=== PATIENT | female | born 1995 | race Caucasian/White ===

== ENCOUNTER → 2022-08-20 | Outpatient (CLI) | payer BC, SELFPAY ==
[2022-08-26 16:05] LABS: HPV Reflexed? NOT INDICATED
== END | disposition home or self-care (01) ==
LOC: LAB 16:52
PROVIDERS: Registered Nurse; Visit Provider Advanced Practice Midwife
DX: Z12.4 Encounter for screening for malignant neoplasm of cervix (principal)
CPT/HCPCS: 88175; G0145

== ENCOUNTER → 2022-08-28 | Outpatient (CLI) | payer BC, SELFPAY ==
[2022-08-28 12:43] LABS: Cholesterol 175 mg/dL (200); High Density Lipoprotein 41 mg/dL; Triglycerides 96 mg/dL; Very Low Density Lipoprotein 19 mg/dL (5-40)
[2022-08-28 12:46] LABS: Progesterone Level 7.71 ng/mL (See Comment)
[2022-08-28 12:47] LABS: Hemoglobin A1c 5.4 % (3.8-5.6)
[2022-09-02 00:06] LABS: Testosterone Free 2.4 pg/mL (0.0-4.2)
== END | disposition home or self-care (01) ==
LOC: MTLAB 10:37
PROVIDERS: PCP Family Medicine; Referring Provider Registered Nurse; Visit Provider Registered Nurse
DX: N92.6 Irregular menstruation, unspecified (principal)
CPT/HCPCS: 36415; 80061; 82627; 83036; 84144; 84402; 82626

== ENCOUNTER → 2022-11-03 | Outpatient (CLI) | payer BC, SELFPAY ==
[2022-11-05 22:06] LABS: Chlamydia By Nucleic Acid AMP Negative (Negative); Gonococcus By Nucleic Acid AMP Negative (Negative)
== END | disposition home or self-care (01) ==
PROVIDERS: PCP Family Medicine; Referring Provider Advanced Practice Midwife; Visit Provider Advanced Practice Midwife
DX: O09.90 Supervision of high risk pregnancy, unspecified, unspecified trimester (principal); Z3A.00 Weeks of gestation of pregnancy not specified
CPT/HCPCS: 87086; 87491; 87591

== ENCOUNTER → 2022-11-20 | Outpatient (CLI) | payer BC, SELFPAY ==
[2022-11-20 10:03] LABS: Absolute Lymphocyte Count 1.84 X10^3/uL (0.83-4.51); Absolute Neutrophil Count 6.8 X10^3/uL (2.0-7.7); Basophil# 0.04 X10^3/uL; Basophil% 0.4 % (0-1); Eosinophil# 0.19 X10^3/uL; Hematocrit 36.5 % (37-47); Hemoglobin 12.8 g/dL (12.0-15.0); Lymphocyte # 1.84 X10^3/ul (0.83-4.51); Lymphocyte % 18.9 % (19-41); Mean Corp Hgb Conc 35.1 g/dL (32-36); Mean Corpuscular Hgb 30.9 pg (27.0-32.0); Mean Corpuscular Volume 88.2 fL (81-99); Mean Platelet Vol. 9.3 fl (6.2-12.0); Monocyte# 0.77 X10^3/uL; Monocyte% 7.9 % (0-10); NRBC Flagged by Analyzer 0 % (0-5); Neutrophil # 6.84 X10^3/uL (2.7-7.7); Neutrophil % 70.4 % (47-70); Platelet Count 329 K/mm3 (150-450); RBC Distribution Width CV 12.2 % (11.6-14.6); RBC Distribution Width SD 39.2 fl (35.1-43.9); Red Blood Count 4.14 M/mm3 (4.2-5.4); White Blood Count 9.7 K/mm3 (4.4-11.0)
[2022-11-20 10:46] LABS: HIV - WCH Non-Reactive (Nonreactive); Hepatitis B Surface Antigen Non-Reactive (Nonreactive); Hepatitis C Antibody Non-Reactive (Nonreactive); Rubella IgG Reactive (Nonreactive); Syphilis Antibodies Non-reactive
== END | disposition home or self-care (01) ==
LOC: LAB 09:07
PROVIDERS: PCP Family Medicine; Referring Provider Advanced Practice Midwife; Visit Provider Advanced Practice Midwife
DX: Z34.90 Encounter for supervision of normal pregnancy, unspecified, unspecified trimester (principal)
CPT/HCPCS: 36415; 85025; 86703; 86762; 86780; 86803; 86850; 86900; 86901; 87340

== ENCOUNTER → 2023-03-24 | Outpatient (CLI) | payer BC, SELFPAY ==
[2023-03-24 08:24] LABS: Absolute Lymphocyte Count 1.31 X10^3/uL (0.83-4.51); Absolute Neutrophil Count 6.7 X10^3/uL (2.0-7.7); Basophil# 0.04 X10^3/uL; Basophil% 0.5 % (0-1); Eosinophil# 0.15 X10^3/uL; Eosinophils% 1.7 % (0-5); Hematocrit 32.7 % (37-47); Hemoglobin 11.1 g/dL (12.0-15.0); Lymphocyte # 1.31 X10^3/ul (0.83-4.51); Lymphocyte % 14.9 % (19-41); Mean Corp Hgb Conc 33.9 g/dL (32-36); Mean Corpuscular Hgb 30.5 pg (27.0-32.0); Mean Corpuscular Volume 89.8 fL (81-99); Mean Platelet Vol. 9.3 fl (6.2-12.0); Monocyte# 0.52 X10^3/uL; Monocyte% 5.9 % (0-10); NRBC Flagged by Analyzer 0 % (0-5); Neutrophil # 6.69 X10^3/uL (2.7-7.7); Neutrophil % 75.9 % (47-70); Platelet Count 256 K/mm3 (150-450); RBC Distribution Width CV 12.7 % (11.6-14.6); RBC Distribution Width SD 41.6 fl (35.1-43.9); Red Blood Count 3.64 M/mm3 (4.2-5.4); White Blood Count 8.8 K/mm3 (4.4-11.0)
--- OUTSIDE RECORDS SUMMARY | 2023-03-24 08:26 | XMS RPT_ITS | CCD ---
Author Name Unknown Address [address] [place] [address] Organization [facility] Care Team Providers Care Talent Associate Name Role Phone Susanne Brennan Unavailable Unavailable Sustersic, Brennan V Unavailable Unavailable Sustersic, Brennan Unavailable Unavailable Osmin Montoya Unavailable Unavailable Sustersic, Brennan V Unavailable Unavailable Sustersic, Brennan V Unavailable [phone] Unavailable Unavailable Unavailable Unavailable Unavailable Unavailable Raphaelersmaciel VDO Jason Primary Care Provider Stephan MOTOR BLOCK MECHANIC-Jessy HORTON Unavailable JESSY CHAKRABORTY Attending Unavailable SUSANNE Arnold BRENNAN Primary Care Unavailable EVELYN VELAZQUEZ Referring Unavailab EVELYN Key Primary Care Unavailab JAY [place] Attending Unavailable Allergies Allergy Classification Reported Allergen(s) Allergy Type Date of Onset Reaction(s) Facility (20 sources) Sulfonamides (Antibiotic); Translations: [Sulfa Drugs] drug allergy [facility] Work Phone: (2 sources) Sulfonamides (Antibiotic); Translations: [SULFA (SULFONAMIDE ANTIBIOTICS)] Drug Allergy 11-06-2022 [facility] Work Phone: Medications Current Medications Medication Drug Class(es) Dates Sig (Normalized) Sig (Original) [id number] 200 actuat albuterol 0.09 mg/actuat metered dose inhaler (20 sources) beta2-Adrenergic Agonist Start: 02-14-2019 albuterol (ProAir HFA) 90 mcg/actuation inhaler Inhale. 0 02/14/2019 Active Completed/Discontinued Medications Medication Drug Class(es) Dates Sig (Normalized) Sig (Original) adapalene 0.001 mg/mg / benzoyl peroxide 0.025 mg/mg topical gel (20 sources) Retinoid Start: 02-14-2019 End: 12-28-2022 adapalene-benzoyl peroxide 0.1-2.5 % gel APPLY DIRECTED AT BEDTIME 0 02/14/2019 12/28/2022 Discontinued (Med List Cleanup) Problems Active Problems Problem Classification Problem Date Documented Date Episodic/Chronic Acute and chronic tonsillitis (10 sources) Tonsillitis; Translations: [Acute tonsillitis] Episodic Allergic reactions (20 sources) Atopic dermatitis; Translations: [Other atopic dermatitis and related conditions] Onset: 11-06-2022 11-06-2022 Chronic Anxiety disorders (20 sources) Generalized anxiety disorder; Translations: [Generalized anxiety disorder] Onset: 11-06-2022 12-28-2022 Chronic Asthma (20 sources) Uncomplicated mild persistent asthma; Translations: [Asthma, unspecified type, unspecified] Onset: 11-06-2022 11-06-2022 Chronic Attention-deficit, conduct, and disruptive behavior disorders (20 sources) Adult attention deficit hyperactivity disorder ; Translations: [Attention deficit disorder with hyperactivity] Onset: 11-06-2022 12-28-2022 Chronic Contraceptive and procreative management (20 sources) Oral contraception status; Translations: [Surveillance of contraceptive pill] Episodic Malaise and fatigue (20 sources) Fatigue; Translations: [Other malaise and fatigue] Onset: 11-06-2022 11-06-2022 Chronic Nutritional deficiencies (20 sources) Vitamin D deficiency; Translations: [Unspecified vitamin D deficiency] Onset: 11-06-2022 11-06-2022 Chronic Other aftercare (20 sources) Patient encounter status; Translations: [Encounter for therapeutic drug monitoring] Episodic Other connective tissue disease (10 sources) Muscle pain; Translations: [Myalgia and myositis, unspecified] Episodic Other lower respiratory disease (7 sources) Cough; Translations: [Cough] Episodic Other skin disorders (20 sources) Cystic acne; Translations: [Other acne] Onset: 11-06-2022 11-06-2022 Episodic Past or Other Problems Problem Classification Problem Date Documented Date Episodic/Chronic Influenza (20 sources) Influenza due to Influenza A virus; Translations: [Influenza with other respiratory manifestations] Resolved: 04-30-2021 Episodic Mood disorders (1 source) Mood disorders Onset: 04-30-2021 04-04-2022 Other connective tissue disease (20 sources) History of clinical finding in subject; Translations: [Personal history of other musculoskeletal disorders] Resolved: 04-30-2021 Episodic Other lower respiratory disease (20 sources) History of tonsillitis; Translations: [Personal history of other diseases of respiratory system] Resolved: 04-30-2021 Episodic Other upper respiratory infections (20 sources) Acute pansinusitis; Translations: [Other acute sinusitis] Resolved: 04-30-2021 Episodic Sprains and strains (20 sources) Strain of neck muscle; Translations: [Sprain of neck] Resolved: 04-30-2021 Episodic Unclassified (20 sources) History of clinical finding in subject; Translations: [History of cough] Resolved: 04-30-2021 NEGATED: Highlighted row has not occurred!Residual codes; unclassified (3 sources) Disease Episodic Results Test Name Value Interpretation Reference Range Facil ity Vital Signs Date Time Vital Sign Value Performing Clinician Faci lity 04-30-2021 10:04-0500 4 1 Brennan Skinner Work Phone: [facility] Work Phone: Encounters Encounter Date Encounter Type Care Provider Facility Start: 01-22-2023 End: 01-22-2023 ambulatory EVELYN VELAZQUEZ [facility] Start: 12-28-2022 End: 12-28-2022 Office outpatient visit 15 minutes Jessy Chakraborty MOTOR BLOCK MECHANIC-PUBLIC HEALTH DENTIST Work Phone: [facility] Procedures Date Procedure Procedure Detail Performing Clinician Start: 04-08-2020 CBC W Auto Different ial panel - Blood Brennan Skinner Start: 04-08-2020 Comprehensive metabo lic 2000 panel Brennan Skinner Plan of Treatment Date Care Activity Detail Author Start: 12-23-2045 Zoster Vaccines (1 of 2) Zoste r Vaccines (1 of 2) [facility] Start: 08-18-2032 DTaP/Tdap/Td Vaccine s (3 - Td or Tdap) DTaP/Tdap/Td Vaccines (3 - Td or Tdap) [facility] Start: 12-28-2022 VIRFUVHOME, Provider : Jessy Chakraborty, Status: Pen, Time: 4:00 PM VIRFUVHOME, Provider: Jessy Chakraborty, Status: Pen, Time: 4:00 PM SH-Iuhxjaozqn-Iibodt [address] [place] [address] Work Phone: Start: 10-23-2022 Influenza vaccination Influenza Vacc ine (#1) [facility] Start: 10-05-2022 VIRFUVGALENE, Provider : Jessy Chakraborty, Status: Pen, Time: 9:00 AM VIRFUVHOME, Provider: Jessy Chakraborty, Status: Pen, Time: 9:00 AM GL-Seofqhsxcw-Ormdpw [address] [place] [address] Work Phone: Start: 07-27-2022 VIRFUVGALENE, Provider : Jessy Chakraborty, Status: Pen, Time: 3:30 PM VIRFUVHOME, Provider: Jessy Chakraborty, Status: Pen, Time: 3:30 PM AC-Ohqsbrxuow-Ykkzes [address] [place] [address] Work Phone: Start: 06-24-2022 VIRFUVGALENE, Provider : Jessy Chakraborty, Status: Pen, Time: 4:00 PM VIRFUVHOME, Provider: Jessy Chakrbaorty, Status: Pen, Time: 4:00 PM KC-Fryzqkgwxy-Ihozdi [address] [place] [address] Work Phone: Start: 05-06-2022 VIRFUVHOME, Provider : Jessy Chakraborty, Status: Pen, Time: 4:30 PM VIRFUVHOME, Provider: Jessy Chakraborty, Status: Pen, Time: 4:30 PM WL-Qwsxrmhpml-Myoseb [address] [place] [address] Work Phone: Start: 02-17-2022 VIRFUVGALENE, Provider : Jessy Chakraborty, Status: Pen, Time: 9:30 AM VIRFUVGALENE, Provider: Jessy Chakraborty, Status: Pen, Time: 9:30 AM OZ-Vcfqfzzjer-Xjrrvx [address] [place] [address] Work Phone: Start: 01-19-2022 VIRFUVHOME, Provider : Jessy Chakraborty, Status: Pen, Time: 11:30 AM VIRFUVHOME, Provider: Jessy Chakraborty, Status: Pen, Time: 11:30 AM [facility]-Nbzyavelax-Jkmbrz [address] [place] [address] Work Phone: Start: 12-29-2021 VIRFUVHOME, Provider : Jessy Chakraborty, Status: Pen, Time: 4:00 PM VIRFUVHOME, Provider: Jessy Chakraborty, Status: Pen, Time: 4:00 PM QD-Qfuthdoalt-Velztk [address] [place] [address] Work Phone: Start: 12-05-2021 VIRFUVHOME, Provider : Jessy Chakraborty, Status: Pen, Time: 12:30 PM VIRFUVHOME, Provider: Jessy Chakraborty, Status: Pen, Time: 12:30 PM LS-Dwbkzmpucc-Prtzkv [address] [place] [address] Work Phone: Start: 10-30-2021 VIRFUVHOME, Provider : Jessy Chakraborty, Status: Pen, Time: 4:15 PM VIRFUVHOME, Provider: Jessy Chakraborty, Status: Pen, Time: 4:15 PM LC-Ypjqxhscgt-Oahtjz [address] [place] [address] Work Phone: Start: 04-30-2021 PHYSICAL, Provider: Brennan Skinner, Status: Pen, Time: 9:00 AM PHYSICAL, Provider: Brennan Skinner, Status: Pen, Time: 9:00 AM [facility] Work Phone: Start: 01-31-2021 FUV, Provider: Brennan Skinner, Status: Pen, Time: 3:45 PM FUV, Provider: Brennan Skinner, Status: Pen, Time: 3:45 PM [facility] Work Phone: Start: 12-23-2016 Screening for malign ant neoplasm of [facility] Start: 12-23-2013 Hepatitis C screening Hepatitis C Sc reening [facility] Start: 12-23-1996 MMR Vaccines (1 of 1 - Standard series) MMR Vaccines (1 of 1 - Standard series) [facility] Start: 12-23-1996 Varicella vaccination Varicell a Vaccines (1 of 2 - 2-dose childhood series) [facility] Start: 06-22-1996 COVID-19 Vaccine (#1) COVID-19 Vacci ne (#1) [facility] Start: 1995 Hepatitis B Vaccines (1 of 3 - 3-dose series) Hepatitis B Vaccines (1 of 3 - 3-dose series) [facility] Start: 1995 HIV screening HIV Screening [facility] Start: 1995 Lipid panel Lipid Panel [facility] Start: 1995 Yearly Adult Physical Yearly Adult P hysical [facility] Immunizations Immunization Date Immunization Notes Care Provider Saadia raman 01-26-2011 human papilloma viru s vaccine, quadrivalent Brennan V Sustersic Work Phone: [facility] Work Phone: Payers Date Payer Category Payer Unknown 2019 Unknown [id number] 1995 Unknown [id number] 1995 Unknown [id number] Social History Date Type Detail Facility Start: 04-30-2021 End: 12-28-2022 Never a smoker Never a smoker [facility] Start: 12-28-2022 Tobacco smoking status NHIS Never smoked tobacco [facility] Work Phone: Start: 12-28-2022 Tobacco use and exposure Smokeless tobacco non-user [facility] Work Phone: Start: 12-28-2022 Alcohol intake Ex-drinker (finding) [facility] Work Phone: Start: 04-30-2021 End: 12-28-2022 Tobacco use panel [facility] Start: 1995 Sex Assigned At Not on file [facility] Work Phone: Start: 12-18-2022 End: 12-28-2022 Exposure to SARS-CoV-2 (event) Not sure [facility] NEGATED: Highlighted row - - [facility] Work Phone: Functional Status Date Assessment Result Facility 04-30-2021 PHQ-9 [id number] In Remission (0-4) [facility] Work Phone: NEGATED: Highlighted row Functional performance Functional status health issues are not documented Disease [facility] Work Phone: Mental Status Date Assessment Result Facility NEGATED: Highlighted row Cognitive function [Interpretation] Cognitive status health issues are not documented Disease [facility] Work Phone: Clinical Notes 06-13-2020 to 12-28-2022 Jessy Chakraborty, MOTOR BLOCK MECHANIC-PUBLIC HEALTH DENTIST - 12/28/2022 4:00 PM EST Note Date & Type Note Facility 12-28-2022 History of Present illness Narrative Outpatient Psychiatry- Follow up visit Subjective Julio Glover Bryce, a 27 y.o. female, presenting for follow up visit for Chief Complaint Patient presents with Anxiety ADHD HPI: Julio was last seen by this provider on 10/05/22. She us currently , 16 wks. Julio stopped her Concerta and clonidine due to the . Was vey nevous about coming off her ADHD meds but is actually doing OK. Feels Zoloft alone is helping. Anxiety well is managed. ADHD sx are OK, not as good as when she was on medication but able to manage and stay on top of things without being panicked. Not as hard on herself or beating heself up. Mood is OK, denies depressive sx and SI/HI. Some moodiness but feels it is related. Sleep is good no problems. Psychiatric Review Of Systems: Depressive Symptoms: negative Manic Symptoms: negative Anxiety Symptoms: General Anxiety Disorder (ANEESH)ANEESH Behaviors: manageable Psychotic Symptoms: negative Other Symptoms: ADHD sx manageable Current Medications: Current Outpatient Medications: albuterol (ProAir HFA) 90 mcg/actuation inhaler, Inhale., Disp: , Rfl: cetirizine (ZyrTEC) 10 mg capsule, Take 1 capsule (10 mg) by mouth once daily., Disp: , Rfl: LORazepam (Ativan) 0.5 mg tablet, Take by mouth once daily., Disp: , Rfl: sertraline (Zoloft) 50 mg tablet, Take 1 tablet (50 mg) by mouth once daily., Disp: 90 tablet, Rfl: 0 Medical History: Past Medical History: Diagnosis Date Acute recurrent pansinusitis 03/19/2015 Acute recurrent pansinusitis Influenza due to other identified influenza virus with other respiratory manifestations 02/11/2017 Influenza A Other conditions influencing health status History of cough Personal history of other diseases of the musculoskeletal system and connective tissue 02/11/2017 History of muscle pain Personal history of other diseases of the respiratory system 05/24/2015 History of tonsillitis Strain of muscle, fascia and tendon at neck level, initial encounter 11/29/2019 Cervical strain Past Psychiatric History: Onset History: ADHD 2020. Past medication trials: Strattera 80 mg 3 months total, Vyvanse 40 mg Feb-Jul 2021, bupropion XL 300 mg (anxiety at higher dosage), Concerta. Family History Mother Family history of diabetes mellitus (V18.0) (Z83.3) Social History Problems Never a smoker Social History: Upbringing: Born and raided in [place], [place]. 2 older brothers. Parents , single family home. Describes childhood as great . Feels she struggled with anxiety as a child. Trauma: Denies sexual, physical and emotional abuse Education: Grades were great in school, 4.0., multiple scholarships. 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 Able to complete work, takes a long time. Work: [employer]. 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 Objective Mental Status Exam Appearance: Neat and clean in appearance, dressed appropriately. Attitude: Calm, cooperative, and engaged in conversation. Behavior: Appropriate eye contact. Motor Activity: No psychomotor agitation or retardation. No abnormal movements, tremors or tics. No evidence of extrapyramidal symptoms or tardive dyskinesia. Speech: Regular rate, rhythm, volume. Spontaneous, no pressured speech. Mood: OK Affect: Euthymic, full range, mood congruent. Thought Process: Linear, logical, and goal-directed. No loose associations or gross thought disorganization. Thought Content: Denied current suicidal ideation or thoughts of harm to self, denied homicidal ideation or thoughts of harm to others. No delusional thinking elicited. No perseverations or obsessions identified. Perception: Did not endorse auditory or visual hallucinations, did not appear to be responding to hallucinatory stimuli. Cognition: Alert, oriented x3. Preserved attention span and concentration, recent and remote memory. Adequate fund of knowledge. No deficits in language. Insight: Fair, in regards to understanding mental health condition Judgement: Good Vitals: There were no vitals filed for this visit. Risk Assessment: Risk of harm to self: Low Risk -- Risk factors include: Access to firearm or other lethal means Protective factors include:Denies current suicidal ideation, Denies history of suicide attempts , Future-oriented talk , Willingness to seek help and support , Gender, Support through ongoing medical and mental healthcare relationships , Current/history of good response to treatment/meds , and Interpersonal relationships and supports, e.g., family, friends, peers, community Risk of harm to others: Low Risk - Risk factors include: No significant risk factors identified on screening. Protective factors include: Lack of known history of harm to others and Lack of known history of violent ideation Julio was seen today for anxiety and adhd. Diagnoses and all orders for this visit: ANEESH (generalized anxiety disorder) - sertraline (Zoloft) 50 mg tablet; Take 1 tablet (50 mg) by mouth once daily. Generalized anxiety disorder Adult ADHD Panic attack Impression: Julio is doing well, she is currently and not on any medication for her ADHD. She managing well without the medication, anxiety well controlled with Zoloft. Discussed treatment plan, will continue current medication regimen and plan to follow-up in 3 to 4 months. Plan/Recommendations: Medications: Continue sertraline 50 mg daily for anxiety Follow up: April 25 at 4:00 Call Psychiatry at with issues. For [facility] residents, [employer] is a 14/09 hotline you can call for assistance [[phone]]. Please call [phone] or go to your closest Emergency Room if you feel unsafe. This includes thoughts of hurting yourself or anyone else, or having other troubles such as hearing voices, seeing visions, or having new and scary thoughts about the people around you. Review with patient: Treatment plan reviewed with the patient. Time Spent: Prep time: 1 min Direct patient time: 19 min Documentation time: 8 min Total time: 28 min ANUJ Tate documented in this encounter [facility] Work Phone: 10-05-2022 Chief complaint Narrative - Reported An interactive audio and video telecommunication system which permits real time communications between the patient (at the originating site) and provider (at the distant site) was utilized to provide this telehealth service.Verbal consent was requested and obtained from JULIO GA on this date, 10/05/2022 09:00 AM , for a telehealth visit.Start Time: 901 End Time: 920 Duration: 19 minPatient identified by name, , and address.CC: Follow up appt for ADHD KV-Ujashuxguf-Pjfwoi [facility] Work Phone: 10-05-2022 Chief complaint Narrative - Reported An interactive audio and video telecommunication system which permits real time communications between the patient (at the originating site) and provider (at the distant site) was utilized to provide this telehealth service.Verbal consent was requested and obtained from JULIO GA on this date, 10/05/2022 09:00 AM , for a telehealth visit.Start Time: 901 End Time: 920 Duration: 19 minPatient identified by name, , and address.CC: Follow up appt for ADHD XF-Enrslqatow-Mxjroe [address] [place] [address] Work Phone: 07-27-2022 Chief complaint Narrative - Reported An interactive audio and video telecommunication system which permits real time communications between the patient (at the originating site) and provider (at the distant site) was utilized to provide this telehealth service.Verbal consent was requested and obtained from JULIO GA on this date, 07/27/2022 03:30 PM , for a telehealth visit.Start Time: 1534 End Time: 1555 Duration: 20 minPatient identified by name, , and address.CC: Follow up appt for ADHD AV-Jfhzzbyvjk-Iicsuu [address] [place] [address] Work Phone: 07-27-2022 Chief complaint Narrative - Reported An interactive audio and video telecommunication system which permits real time communications between the patient (at the originating site) and provider (at the distant site) was utilized to provide this telehealth service.Verbal consent was requested and obtained from JULIO GA on this date, 07/27/2022 03:30 PM , for a telehealth visit.Start Time: 1534 End Time: 1555 Duration: 20 minPatient identified by name, , and address.CC: Follow up appt for ADHD JI-Mwdwmilkfe-Prhpwd [address] [place] [address] Work Phone: 07-27-2022 History of Present illness Narrative Julio is a 26 yo CF with a hx of ANEESH and ADHD who was last seen by this provider on 07/27/22 and her Concerta was increased at that time.Julio is doing really well, feels she is on a good mixture of medications for her. She goes back to school this month and is a little worried she will fall back into her old ways of stress taking over. Just got back form honeymoon, trying to get things back in place with unpacking and getting home organized. Feels ADHD sx are still there but feels it is more manageable and not feeling as overwhelmed. SHe has not had a crying meltdown in a long time, was having them weekly, even during the summer in the past.Mood had been good, denies depressive sx, denies SI/HI. Anxiety manageable at this time. Sleep is good, hands are going numb when she sleeps, hands hurt, not sure if carpal tunnel sx.Per previous HPI:Julio is a 26 yo CF with a hx of ANEESH and ADHD who was last seen by this provider on 06/26/22 and her sertraline and clonidine were increased at that time. Julio reports the last few weeks of school were chaotic; feels sertraline is helping with anxiety somewhat, it was manageable towards the end of the school year.Julio's mood is good, denies depressive sx. Denies SI/HI. Sleep is good, no problems falling or staying asleep. Going on honeymoon this summer.I have personally reviewed the OARRS report for JULIO GA. I have considered the risks of abuse, dependence, addiction and diversion.Is the patient prescribed a combination of a benzodiazepine and opioid? No.Last urine drug screening date/ordered today: 04/02/21Controlled Substance Agreement:I have printed this form and reviewed each line item with the patient and the patient has verbalized understanding.Date of the last Controlled Substance Agreement: 03/30/22 WY-Vajwraeqzc-Noqfhn [address] [place] [address] Work Phone: 07-27-2022 History of Present illness Narrative Julio is a 26 yo CF with a hx of ANEESH and ADHD who was last seen by this provider on 07/27/22 and her Concerta was increased at that time.Julio is doing really well, feels she is on a good mixture of medications for her. She goes back to school this month and is a little worried she will fall back into her old ways of stress taking over. Just got back form [place], trying to get things back in place with unpacking and getting home organized. Feels ADHD sx are still there but feels it is more manageable and not feeling as overwhelmed. SHe has not had a crying meltdown in a long time, was having them weekly, even during the summer in the past.Mood had been good, denies depressive sx, denies SI/HI. Anxiety manageable at this time. Sleep is good, hands are going numb when she sleeps, hands hurt, not sure if carpal tunnel sx.Per previous HPI:Julio is a 26 yo CF with a hx of ANEESH and ADHD who was last seen by this provider on 06/26/22 and her sertraline and clonidine were increased at that time. Julio reports the last few weeks of school were chaotic; feels sertraline is helping with anxiety somewhat, it was manageable towards the end of the school year.Julio's mood is good, denies depressive sx. Denies SI/HI. Sleep is good, no problems falling or staying asleep. Going on honeymoon this summer.I have personally reviewed the OARRS report for JULIO GA. I have considered the risks of abuse, dependence, addiction and diversion.Is the patient prescribed a combination of a benzodiazepine and opioid? No.Last urine drug screening date/ordered today: 04/02/21Controlled Substance Agreement:I have printed this form and reviewed each line item with the patient and the patient has verbalized understanding.Date of the last Controlled Substance Agreement: 03/30/22 KB-Czxipfjvwc-Vtvrfi [address] [place] [address] Work Phone: 06-26-2022 History of Present illness Narrative Julio is a 26 yo CF with a hx of ANEESH and ADHD who was last seen by this provider on 06/26/22 and her sertraline and clonidine were increased at that time. Julio reports the last few weeks of school were chaotic; feels sertraline is helping with anxiety somewhat, it was manageable towards the end of the school year.Julio's mood is good, denies depressive sx. Denies SI/HI. Sleep is good, no problems falling or staying asleep. Going on honeymoon this summer.Per previous HPI:Julio is a 26 yo CF with a hx of ANEESH and ADHD who is being seen today for a follow up appt. Julio was last seen on 05/29/22 and she was cross tapered off citalopram and was started on sertraline and was also started on clonidine at that time. Julio is doing OK, has now completely come off Celexa and just on sertraline. Feeling some body aches since completely stopping.Julio feels there is a little change with switching to sertraline, feels she is a little better. The clonidine helped her feel calmer the next day, helped with the hyperactive feel and slowing thoughts but has not helped with task completion and organization. She is currently taking methylphenidate SR 18 mg and sometimes taking the 5 mg booster.Denies SI/HI. Sleep is improved with the addition of clonidine at night.I have personally reviewed the OARRS report for JULIO GA. I have considered the risks of abuse, dependence, addiction and diversion.Is the patient prescribed a combination of a benzodiazepine and opioid? No.Last urine drug screening date/ordered today: 04/02/21Controlled Substance Agreement:I have printed this form and reviewed each line item with the patient and the patient has verbalized understanding.Date of the last Controlled Substance Agreement: 03/30/22 FS-Qsrsifhnzs-Gucshl [address] [place] [address] Work Phone: 06-26-2022 History of Present illness Narrative Julio is a 26 yo CF with a hx of ANEESH and ADHD who was last seen by this provider on 06/26/22 and her sertraline and clonidine were increased at that time. Julio reports the last few weeks of school were chaotic; feels sertraline is helping with anxiety somewhat, it was manageable towards the end of the school year.Julio's mood is good, denies depressive sx. Denies SI/HI. Sleep is good, no problems falling or staying asleep. Going on honeymoon this summer.Per previous HPI:Julio is a 26 yo CF with a hx of ANEESH and ADHD who is being seen today for a follow up appt. Julio was last seen on 05/29/22 and she was cross tapered off citalopram and was started on sertraline and was also started on clonidine at that time. Julio is doing OK, has now completely come off Celexa and just on sertraline. Feeling some body aches since completely stopping.Julio feels there is a little change with switching to sertraline, feels she is a little better. The clonidine helped her feel calmer the next day, helped with the hyperactive feel and slowing thoughts but has not helped with task completion and organization. She is currently taking methylphenidate SR 18 mg and sometimes taking the 5 mg booster.Denies SI/HI. Sleep is improved with the addition of clonidine at night.I have personally reviewed the OARRS report for JULIO GA. I have considered the risks of abuse, dependence, addiction and diversion.Is the patient prescribed a combination of a benzodiazepine and opioid? No.Last urine drug screening date/ordered today: 04/02/21Controlled Substance Agreement:I have printed this form and reviewed each line item with the patient and the patient has verbalized understanding.Date of the last Controlled Substance Agreement: 03/30/22 TG-Uztpayddeg-Ylkvqa [address] [place] [address] Work Phone: 06-24-2022 Chief complaint Narrative - Reported An interactive audio and video telecommunication system which permits real time communications between the patient (at the originating site) and provider (at the distant site) was utilized to provide this telehealth service.Verbal consent was requested and obtained from JULIO GA on this date, 06/24/2022 04:00 PM , for a telehealth visit.Start Time: 1033 End Time: 1115 Duration: 43 minPatient identified by name, , and address.CC: Follow up appt for ADHD TT-Oxnfvhckpj-Dztqdl [address] [place] [address] Work Phone: 06-24-2022 Chief complaint Narrative - Reported An interactive audio and video telecommunication system which permits real time communications between the patient (at the originating site) and provider (at the distant site) was utilized to provide this telehealth service.Verbal consent was requested and obtained from JULIO GA on this date, 06/24/2022 04:00 PM , for a telehealth visit.Start Time: 1605 End Time: 1640 Duration: 35 minPatient identified by name, , and address.CC: Follow up appt for ADHD GB-Zmeqboaveh-Leuddx [address] [place] [address] Work Phone: 05-29-2022 History of Present illness Narrative Julio is a 26 yo CF with a hx of ANEESH and ADHD who is being seen today for a follow up appt. Julio was last seen on 05/29/22 and she was cross tapered off citalopram and was started on sertraline and was also started on clonidine at that time. Julio is doing OK, has now completely come off Celexa and just on sertraline. Feeling some body aches since completely stopping.Julio feels there is a little change with switching to sertraline, feels she is a little better. The clonidine helped her feel calmer the next day, helped with the hyperactive feel and slowing thoughts but has not helped with task completion and organization. She is currently taking methylphenidate SR 18 mg and sometimes taking the 5 mg booster.Denies SI/HI. Sleep is improved with the addition of clonidine at night.Per previous HPI:Julio is a 26 yo CF with a hx of ANEESH and ADHD who is being seen today for a follow up appt and was last seen on 05/06/22 was decreased to Concerta 27 mg at that time due to increased anxiety at 36 mg. Julio reports she has noticed that she still has a little bit of jitteriness with the Concerta at 27 mg. She tried the booster methylphenidate 5 mg but feels it did nothing. so. she doubled it but then had difficulty sleeping at night, was waking up in the night.Julio has been on spring break, states this week has been great. She is getting things done at home, able to get some school work done. Getting a bit more anxious knowing it is at the end of break. Stress comes when she has to make a lot of decisions or is in a crazy environment, she will have increased anxiety. Whenever she experiences stress at work she gets increased anxiety and feels she cannot handle it, will start hyper focusing and getting jittery.Endorses some OCD type thoughts.Julio's mood is good, denies depressive sx. Denies trouble falling and staying asleep. Denies SI/HI.I have personally reviewed the OARRS report for JULIO GA. I have considered the risks of abuse, dependence, addiction and diversion.Is the patient prescribed a combination of a benzodiazepine and opioid? No.Last urine drug screening date/ordered today: 04/02/21Controlled Substance Agreement:I have printed this form and reviewed each line item with the patient and the patient has verbalized understanding.Date of the last Controlled Substance Agreement: 03/30/22 MB-Kwpxesvenw-Abdidj [address] [place] Work Phone: 05-29-2022 Chief complaint Narrative - Reported An interactive audio and video telecommunication system which permits real time communications between the patient (at the originating site) and provider (at the distant site) was utilized to provide this telehealth service.Verbal consent was requested and obtained from JULIO GA on this date, 05/29/2022 10:30 AM , for a telehealth visit.Start Time: 1638 End Time: 1715 Duration: 37 minPatient identified by name, , and address.CC: Follow up appt for ADHD TL-Algwxpptxq-Cddano [address] [place] [address] Work Phone: 05-29-2022 Chief complaint Narrative - Reported An interactive audio and video telecommunication system which permits real time communications between the patient (at the originating site) and provider (at the distant site) was utilized to provide this telehealth service.Verbal consent was requested and obtained from JULIO GA on this date, 05/29/2022 10:30 AM , for a telehealth visit.Start Time: 1033 End Time: 1115 Duration: 43 minPatient identified by name, , and address.CC: Follow up appt for ADHD CT-Twegsntjgw-Opqqww [address] [place] [address] Work Phone: 05-29-2022 Chief complaint Narrative - Reported An interactive audio and video telecommunication system which permits real time communications between the patient (at the originating site) and provider (at the distant site) was utilized to provide this telehealth service.Verbal consent was requested and obtained from JULIO GA on this date, 05/29/2022 10:30 AM , for a telehealth visit.Start Time: 1033 End Time: 1115 Duration: 43 minPatient identified by name, , and address.CC: Follow up appt for ADHD VG-Igbxxcvepy-Mbnnsz [address] [place] [address] Work Phone: 05-06-2022 Chief complaint Narrative - Reported An interactive audio and video telecommunication system which permits real time communications between the patient (at the originating site) and provider (at the distant site) was utilized to provide this telehealth service.Verbal consent was requested and obtained from JULIO GA on this date, 05/06/2022 04:30 PM , for a telehealth visit.Start Time: 1638 End Time: Duration: 28 minPatient identified by name, , and address.CC: Follow up appt for ADHD EF-Pxgonndwba-Wtvqwd [address] [place] Work Phone: 05-06-2022 Chief complaint Narrative - Reported An interactive audio and video telecommunication system which permits real time communications between the patient (at the originating site) and provider (at the distant site) was utilized to provide this telehealth service.Verbal consent was requested and obtained from JULIO GA on this date, 05/06/2022 04:30 PM , for a telehealth visit.Start Time: 1638 End Time: 1715 Duration: 37 minPatient identified by name, , and address.CC: Follow up appt for ADHD ZR-Pqlwmmzpgg-Jxeegl [address] [place] Work Phone: 05-06-2022 History of Present illness Narrative Julio is a 26 yo CF with a hx of ANEESH and ADHD who is being seen today for a follow up appt and was last seen on 05/06/22 was decreased to Concerta 27 mg at that time due to increased anxiety at 36 mg. Julio reports she has noticed that she still has a little bit of jitteriness with the Concerta at 27 mg. She tried the booster methylphenidate 5 mg but feels it did nothing. so. she doubled it but then had difficulty sleeping at night, was waking up in the night.Julio has been on spring break, states this week has been great. She is getting things done at home, able to get some school work done. Getting a bit more anxious knowing it is at the end of break. Stress comes when she has to make a lot of decisions or is in a crazy environment, she will have increased anxiety. Whenever she experiences stress at work she gets increased anxiety and feels she cannot handle it, will start hyper focusing and getting jittery.Endorses some OCD type thoughts.Julio's mood is good, denies depressive sx. Denies trouble falling and staying asleep. Denies SI/HI.Per previous HPI:Julio is a 26 yo CF with a hx of ANEESH and ADHD who is being seen today for a follow up appt and was last seen on 03/30/22 and she was provided a short course of lorazepam to be used for extreme panic attacks as needed. Since that appointment Julio reached out to this provider stating she feels that the Concerta was not working as well wondering if she could increase dose with her next refill. Increased Julio's Concerta to 36 mg daily. She started the new dose on Wednesday but reports she does not like it. Feels it is making things worse, struggling to focus. Feels it is making her more hyper. Julio now is not sure whether Concerta is the right medication for her, because looking back she was still having anxiety at 27 mg. She has feelings of being overwhelmed, sensory overload with the Concerta. Will start to shut down with being overwhelmed.Julio describes her mood as stressed, endorses some depressive sx which are made worse by anxiety. Denies any problems with falling or staying asleep. Denies SI/HI.I have personally reviewed the OARRS report for JULIO GA. I have considered the risks of abuse, dependence, addiction and diversion.Is the patient prescribed a combination of a benzodiazepine and opioid? No.Last urine drug screening date/ordered today: 04/02/21Controlled Substance Agreement:I have printed this form and reviewed each line item with the patient and the patient has verbalized understanding.Date of the last Controlled Substance Agreement: 03/30/22 XV-Ywnvovpjno-Iqrrog [address] [place] Work Phone: 05-06-2022 History of Present illness Narrative Julio is a 26 yo CF with a hx of ANEESH and ADHD who is being seen today for a follow up appt and was last seen on 05/06/22 was decreased to Concerta 27 mg at that time due to increased anxiety at 36 mg. Julio reports she has noticed that she still has a little bit of jitteriness with the Concerta at 27 mg. She tried the booster methylphenidate 5 mg but feels it did nothing. so. she doubled it but then had difficulty sleeping at night, was waking up in the night.Jluio has been on spring break, states this week has been great. She is getting things done at home, able to get some school work done. Getting a bit more anxious knowing it is at the end of break. Stress comes when she has to make a lot of decisions or is in a crazy environment, she will have increased anxiety. Whenever she experiences stress at work she gets increased anxiety and feels she cannot handle it, will start hyper focusing and getting jittery.Endorses some OCD type thoughts.Julio's mood is good, denies depressive sx. Denies trouble falling and staying asleep. Denies SI/HI.Per previous HPI:Julio is a 26 yo CF with a hx of ANEESH and ADHD who is being seen today for a follow up appt and was last seen on 03/30/22 and she was provided a short course of lorazepam to be used for extreme panic attacks as needed. Since that appointment Julio reached out to this provider stating she feels that the Concerta was not working as well wondering if she could increase dose with her next refill. Increased Julio's Concerta to 36 mg daily. She started the new dose on Wednesday but reports she does not like it. Feels it is making things worse, struggling to focus. Feels it is making her more hyper. Julio now is not sure whether Concerta is the right medication for her, because looking back she was still having anxiety at 27 mg. She has feelings of being overwhelmed, sensory overload with the Concerta. Will start to shut down with being overwhelmed.Julio describes her mood as stressed, endorses some depressive sx which are made worse by anxiety. Denies any problems with falling or staying asleep. Denies SI/HI.I have personally reviewed the OARRS report for JULIO GA. I have considered the risks of abuse, dependence, addiction and diversion.Is the patient prescribed a combination of a benzodiazepine and opioid? No.Last urine drug screening date/ordered today: 04/02/21Controlled Substance Agreement:I have printed this form and reviewed each line item with the patient and the patient has verbalized understanding.Date of the last Controlled Substance Agreement: 03/30/22 IF-Ghlphpfqcf-Dwpqox [address] [place] [address] Work Phone: 03-30-2022 Chief complaint Narrative - Reported An interactive audio and video telecommunication system which permits real time communications between the patient (at the originating site) and provider (at the distant site) was utilized to provide this telehealth service.Verbal consent was requested and obtained from JULIO GA on this date, 03/30/2022 04:00 PM , for a telehealth visit.Start Time: 1602 End Time: Duration: minPatient identified by name, , and address.CC: Follow up appt for ADHD XI-Hbskwqlhfn-Ifpres [address] [place] [address] Work Phone: 03-30-2022 Chief complaint Narrative - Reported An interactive audio and video telecommunication system which permits real time communications between the patient (at the originating site) and provider (at the distant site) was utilized to provide this telehealth service.Verbal consent was requested and obtained from JULIO GA on this date, 03/30/2022 04:00 PM , for a telehealth visit.Start Time: 1602 End Time: Duration: minPatient identified by name, , and address.CC: Follow up appt for ADHD YC-Whrjyiipcb-Eroirm [address] [place] [address] Work Phone: 03-30-2022 Chief complaint Narrative - Reported An interactive audio and video telecommunication system which permits real time communications between the patient (at the originating site) and provider (at the distant site) was utilized to provide this telehealth service.Verbal consent was requested and obtained from JULIO GA on this date, 03/30/2022 04:00 PM , for a telehealth visit.Start Time: 1602 End Time: 1630 Duration: 28 minPatient identified by name, , and address.CC: Follow up appt for ADHD FG-Gpchvuoges-Rhfdpl [address] [place] [address] Work Phone: 03-30-2022 History of Present illness Narrative Julio is a 26 yo CF with a hx of ANEESH and ADHD who is being seen today for a follow up appt and was last seen on 03/30/22 and she was provided a short course of lorazepam to be used for extreme panic attacks as needed. Since that appointment Julio reached out to this provider stating she feels that the Concerta was not working as well wondering if she could increase dose with her next refill. Increased Julio's Concerta to 36 mg daily. She started the new dose on Wednesday but reports she does not like it. Feels it is making things worse, struggling to focus. Feels it is making her more hyper. Julio now is not sure whether Concerta is the right medication for her, because looking back she was still having anxiety at 27 mg. She has feelings of being overwhelmed, sensory overload with the Concerta. Will start to shut down with being overwhelmed.Julio describes her mood as stressed, endorses some depressive sx which are made worse by anxiety. Denies any problems with falling or staying asleep. Denies SI/HI.Per previous HPI:Julio is a 26 yo CF with a hx of ANEESH and ADHD who is being seen today for a follow up appt and was last seen on 02/17/22 and no medication changes were made at that time. Julio is back to work now, still feeing good with the Concerta.She reports that last week she has a bad day, had a panic attack at work and ended up crying in the bathroom. Something happened that she was struggling to move on from. It was anxiety related, will convince herself that she will loose her job, goes to the worst case scenario. 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 Handling stress is a struggle for her.Anxiety is a lot better overall, Concerta helping with anxiety. She is able to move on, able to turn her brain off and focus on things that are not work related.Mood is still improved, overall more cheerful. Occasionally will ruminate on things outside of work, able to recognize it and turn it off or distract herself.Sleep is still good. not problems falling or staying sleep. Denies SI/HI. Denies manic sx.I have personally reviewed the OARRS report for JULIO GA. I have considered the risks of abuse, dependence, addiction and diversion.Is the patient prescribed a combination of a benzodiazepine and opioid? No.Last urine drug screening date/ordered today: 04/02/21Controlled Substance Agreement:I have printed this form and reviewed each line item with the patient and the patient has verbalized understanding.Date of the last Controlled Substance Agreement: 03/30/22 UC-Ygsvleyanm-Zlscwz [address] [place] [address] Work Phone: 03-30-2022 History of Present illness Narrative Julio is a 26 yo CF with a hx of ANEESH and ADHD who is being seen today for a follow up appt and was last seen on 03/30/22 was decreased to Concerta 27 mg,will still feel a little bit of jitteriness.Booster 5 mg did nothing so she doubled it and had difficulty sleeping at night was waking up in the night.This week has been great, getting things done at home ,able to get some school work done. Getting a bit more anxious knowing it is at the end of break. Any time stress comes where she has to make a lot of decisions or in a crazy environment she will have increased anxiety. Whenever she experiences stress at work she gets increased anxiety and feels she cannot handle it, will start hyper focusing and getting jittery.SOme OCD type thoughts.Mood good, denies depressive sx.Per previous HPI:Julio is a 26 yo CF with a hx of ANEESH and ADHD who is being seen today for a follow up appt and was last seen on 03/30/22 and she was provided a short course of lorazepam to be used for extreme panic attacks as needed. Since that appointment Julio reached out to this provider stating she feels that the Concerta was not working as well wondering if she could increase dose with her next refill. Increased Julio's Concerta to 36 mg daily. She started the new dose on Wednesday but reports she does not like it. Feels it is making things worse, struggling to focus. Feels it is making her more hyper. Julio now is not sure whether Concerta is the right medication for her, because looking back she was still having anxiety at 27 mg. She has feelings of being overwhelmed, sensory overload with the Concerta. Will start to shut down with being overwhelmed.Julio describes her mood as stressed, endorses some depressive sx which are made worse by anxiety. Denies any problems with falling or staying asleep. Denies SI/HI.Per previous HPI:Julio is a 26 yo CF with a hx of ANEESH and ADHD who is being seen today for a follow up appt and was last seen on 02/17/22 and no medication changes were made at that time. Julio is back to work now, still feeing good with the Concerta.She reports that last week she has a bad day, had a panic attack at work and ended up crying in the bathroom. Something happened that she was struggling to move on from. It was anxiety related, will convince herself that she will loose her job, goes to the worst case scenario. 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 Handling stress is a struggle for her.Anxiety is a lot better overall, Concerta helping with anxiety. She is able to move on, able to turn her brain off and focus on things that are not work related.Mood is still improved, overall more cheerful. Occasionally will ruminate on things outside of work, able to recognize it and turn it off or distract herself.Sleep is still good. not problems falling or staying sleep. Denies SI/HI. Denies manic sx.I have personally reviewed the OARRS report for JULIO GA. I have considered the risks of abuse, dependence, addiction and diversion.Is the patient prescribed a combination of a benzodiazepine and opioid? No.Last urine drug screening date/ordered today: 04/02/21Controlled Substance Agreement:I have printed this form and reviewed each line item with the patient and the patient has verbalized understanding.Date of the last Controlled Substance Agreement: 03/30/22 VK-Npwgnjmplo-Iryybj [address] [place] [address] Work Phone: 02-17-2022 History of Present illness Narrative Julio is a 26 yo CF with a hx of ANEESH and ADHD who is being seen today for a follow up appt and was last seen on 02/17/22 and no medication changes were made at that time. Back to work now, still feeing good with the Concerta, last week she has a bad day, had a panic attack, ended up crying in the bathroom. Something happened that she was struggling to move on from. Anxiety related, get convinced she will loose her job, over things, worse case scenario. 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 Some days she wants to be done other days she like it. Handling stress is a struggle for her.Anxiety is a lot better overall, Concerta helping with anxiety. Being able to move on, able to turn her brain off and focus on things that are not work related.Mood is still improved, overall more cheerful. Occasionally will ruminate on things outside of work, able to recognize it and turn it off or distract herself.Sleep is still good. not problems falling or staying sleep. Denies SI/HI. Denies manic sx.Per previous HPI:Julio is a 26 yo CF with a hx of ANEESH and ADHD who is being seen today for a follow up appt and was last seen on and her Concerta was increased at that time.Julio states she is doing pretty well with the increase in Concerta, she is at a spot where she feels is is her and she is at her normal spot where she can use her skills she has learned. She was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
[2023-03-24 08:34] LABS: Glucose Challenge Gest 1H 50g 165 mg/dL (70-140)
[2023-03-24 10:44] LABS: HIV - WCH Non-Reactive (Nonreactive); Syphilis Antibodies Non-reactive
== END | disposition home or self-care (01) ==
PROVIDERS: PCP Family Medicine; Referring Provider Obstetrics & Gynecology; Visit Provider Obstetrics & Gynecology
DX: O09.90 Supervision of high risk pregnancy, unspecified, unspecified trimester (principal); Z67.91 Unspecified blood type, Rh negative; Z3A.00 Weeks of gestation of pregnancy not specified
CPT/HCPCS: 36415; 82950; 85025; 86703; 86780; 86850; 86900; 86901

== ENCOUNTER → 2023-04-12 | Outpatient (CLI) | payer BC, SELFPAY ==
--- OUTSIDE RECORDS SUMMARY | 2023-04-12 10:26 | XMS RPT_ITS | CCD ---
Author Name Unknown Address [address] [place] [address] Organization [facility] Care Team Providers Care Sample Color Maker Name Role Phone Sustflorencio Brennan Unavailable Unavailable Sustersic, Brennan V Unavailable Unavailable Sustersic, Brennan Unavailable Unavailable Osmin Montoya Unavailable Unavailable Sustersic, Brennan V Unavailable Unavailable Sustersic, Brennan V Unavailable Unavailable Unavailable Unavailable Unavailable Unavailable Unavailable Sustersic V, DO Brennan Primary Care Provider [phone] Stephan KELP CUTTER-Jessy HORTON Unavailable JESSY CHAKRABORTY Attending Unavailable SUSTERSARIANNE Arnold, BRENNAN Primary Care Unavailable EVELYN VELAZQUEZ Primary Care Unavailab SASHA Yang Attending Unavailable DESTINI REYES Referring Unavailable EVELYN VELAZQUEZ Primary Care Unavailab DESHAWN Pena Attending Unavailable DESTINI REYSE Referring Unavailable JAY CHUN Attending Unavailable EVELYN VELAZQUEZ Referring Unavailab EVELYN Key Primary Care Unavailab le Allergies Allergy Classification Reported Allergen(s) Allergy Type Date of Onset Reaction(s) Facility (20 sources) Sulfonamides (Antibiotic); Translations: [Sulfa Drugs] drug allergy [facility] Work Phone: (2 sources) Sulfonamides (Antibiotic); Translations: [SULFA (SULFONAMIDE ANTIBIOTICS)] Drug Allergy [facility] Work Phone: (1 source) Sulfonamides (Antibiotic); Translations: [SULFA ANTIBIOTICS] Propensity to adverse reactions to drug (disorder) 4 [facility] Repository Medications Current Medications Medication Drug Class(es) Dates Sig (Normalized) Sig (Original) [id number] 200 actuat albuterol 0.09 mg/actuat metered dose [...] Sign Value Performing Clinician Faci lity 04-30-2021 [id number] 4 1 Brennan Skinner Work Phone: 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 Work Phone: [facility] [place] Procedures Date Procedure Procedure Detail Performing Clinician Start: 04-08-2020 CBC W Auto Different ial panel - Blood Brennan Skinner Start: 04-08-2020 Comprehensive metabo lic 2000 panel Brennan Skinner Plan of Treatment Date Care Activity Detail Author Start: 12-23-2045 Zoster Vaccines (1 of 2) Zoste r Vaccines (1 of 2) [facility] Start: 08-18-2032 DTaP/Tdap/Td Vaccine s (3 - Td or Tdap) DTaP/Tdap/Td Vaccines (3 - Td or Tdap) [facility] Start: 12-28-2022 VIRFUVHOME, Provider : Jessy Chakraborty, Status: Pen, Time: 4:00 PM VIRFUVGALENE, Provider: Jessy Chakraborty, Status: Pen, Time: 4:00 PM VH-Bcgixiiaqp-Upcewh [address] [place] [address] Work Phone: Start: 10-23-2022 Influenza vaccination Influenza Vacc ine (#1) [facility] Start: 10-05-2022 VIRFUVPATITO, Provider : Jessy Chakraborty, Status: Pen, Time: 9:00 AM VIRFUVHOME, Provider: Jessy Chakraborty, Status: Pen, Time: 9:00 AM RZ-Vgostdgcez-Xkkyit [address] [place] [address] Work Phone: Start: 07-27-2022 VIRFUVPATITO, Provider : Jessy Chakraborty, Status: Pen, Time: 3:30 PM VIRFUVHOME, Provider: Jessy Chakraborty, Status: Pen, Time: 3:30 PM HU-Tawhwqaczr-Kcurrz [address] [place] [address] Work Phone: Start: 06-24-2022 VIRFUVPATITO, Provider : Jessy Chakraborty, Status: Pen, Time: 4:00 PM VIRFUVPATITO, Provider: Jessy Chakraborty, Status: Pen, Time: 4:00 PM RI-Hwpnbccjyy-Hzvifs [address] [place] [address] Work Phone: Start: 05-06-2022 VIRFUVHOME, Provider : Jessy Chakraborty, Status: Pen, Time: 4:30 PM VIRFUVHOME, Provider: Jessy Chakraborty, Status: Pen, Time: 4:30 PM FI-Snarwcnpwa-Dejneo [address] [place] [address] Work Phone: Start: 02-17-2022 VIRFUVHOME, Provider : Jessy Chakraborty, Status: Pen, Time: 9:30 AM VIRFUVHOME, Provider: Jessy Chakraborty, Status: Pen, Time: 9:30 AM IC-Wskqxwdpvh-Wnrxun [address] [place] [address] Work Phone: Start: 01-19-2022 VIRFUVHOME, Provider : Jessy Chakraborty, Status: Pen, Time: 11:30 AM VIRFUVHOME, Provider: Jessy Chakraborty, Status: Pen, Time: 11:30 AM TU-Tuamzezfky-Qquojn [address] [place] [address] Work Phone: Start: 12-29-2021 VIRFUVHOME, Provider : Jessy Chakraborty, Status: Pen, Time: 4:00 PM VIRFUVHOME, Provider: Jessy Chakraborty, Status: Pen, Time: 4:00 PM VD-Mwftrahywn-Ujzfkv [address] [place] [address] Work Phone: Start: 12-05-2021 VIRFUVHOME, Provider : Jessy Chakraborty, Status: Pen, Time: 12:30 PM VIRFUVHOME, Provider: Jessy Chakraborty, Status: Pen, Time: 12:30 PM MQ-Nzghyniwwd-Yeiphs [address] [place] [address] Work Phone: Start: 10-30-2021 VIRFUVHOME, Provider : Jessy Chakraborty, Status: Pen, Time: 4:15 PM VIRFUVHOME, Provider: Jessy Chakraborty, Status: Pen, Time: 4:15 PM ET-Mqvmkdkqvh-Crnwfe [address] [place] [address] Work Phone: Start: 04-30-2021 PHYSICAL, Provider: Brennan Skinner, Status: Pen, Time: 9:00 AM PHYSICAL, Provider: Brennan Skinner, Status: Pen, Time: 9:00 AM [facility] Work Phone: Start: 01-31-2021 FUV, Provider: Brennan Skinner, Status: Pen, Time: 3:45 PM FUV, Provider: Brennan Skinner, Status: Pen, Time: 3:45 PM [facility] Work Phone: Start: 12-23-2016 Screening for malign ant neoplasm of cervix [facility] Start: 12-23-2013 Hepatitis C screening Hepatitis C Sc reening [facility] Start: 12-23-1996 MMR Vaccines (1 of 1 - Standard series) MMR Vaccines (1 of 1 - Standard series) [facility] Start: 12-23-1996 Varicella vaccination Varicell a Vaccines (1 of 2 - 2-dose childhood series) [facility] Start: 06-22-1996 COVID-19 Vaccine (#1) COVID-19 Vacci ne (#1) [facility] Start: 1995 Hepatitis B Vaccines (1 of 3 - 3-dose series) Hepatitis B Vaccines (1 of 3 - 3-dose series) [facility] Start: 1995 HIV screening HIV Screening [facility] Start: 1995 Lipid panel Lipid Panel [facility] Start: 1995 Yearly Adult Physical Yearly Adult P hysical [facility] Immunizations Immunization Date Immunization Notes Care Provider Saadia raman 01-26-2011 human papilloma viru s vaccine, quadrivalent Brennan V Susanne Work Phone: [facility] Work Phone: Payers Date Payer Category Payer Unknown 2019 Unknown [id number] 1995 Unknown [id number] 1995 Unknown [id number] 1995 Unknown [id number] 1995 Unknown [id number] [id number] Social History Date Type Detail Facility Start: 04-30-2021 End: 12-28-2022 Never a smoker Never a smoker [facility] Start: 12-28-2022 Tobacco smoking status NHIS Never smoked tobacco [facility] Work Phone: Start: 12-28-2022 Tobacco use and exposure Smokeless tobacco non-user [facility] Work Phone: Start: 12-28-2022 Alcohol intake Ex-drinker (finding) [facility] Work Phone: Start: 04-30-2021 End: 12-28-2022 Tobacco use panel [facility] Start: 1995 Sex Assigned At Not on file [facility] Work Phone: Start: 12-18-2022 End: 12-28-2022 Exposure to SARS-CoV-2 (event) Not sure [facility] NEGATED: Highlighted row - - [facility] Work Phone: Functional Status Date Assessment Result Facility 04-30-2021 PHQ-9 [id number] In Remission (0-4) [facility] Work Phone: NEGATED: Highlighted row Functional performance Functional status health issues are not documented Disease [facility] Work Phone: Mental Status Date Assessment Result Facility NEGATED: Highlighted row Cognitive function [Interpretation] Cognitive status health issues are not documented Disease [facility] Work Phone: Clinical Notes 06-13-2020 to 12-28-2022 Jessy Chakraborty, BRENDA-CLIFFORD - 12/28/2022 4:00 PM EST Note Date & Type Note Facility 12-28-2022 History of Present illness Narrative Outpatient Psychiatry- Follow up visit Subjective Julio Wu, a 27 y.o. female, presenting for follow [...] Social History: Upbringing: Born and raided in [place], [place]. 2 older brothers. Parents , single family home. Describes childhood as great . Feels she struggled with anxiety as a child. Trauma: Denies sexual, physical and emotional abuse Education: Grades were great in school, 4.0., multiple scholarships. 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 Able to complete work, takes a long time. 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 Marital Status: Children: currently Living [...] 4:00 Call Psychiatry at with issues. For [facility] residents, [employer] is a 14/09 hotline you can call for assistance [[phone]]. Please call [phone] or go to your closest Emergency Room [...] min ANUJ Tate documented in this encounter [facility] Work Phone: 10-05-2022 Chief complaint Narrative - [...] and address.CC: Follow up appt for ADHD PD-Gsuzicoxsg-Gpwbvf [address] [place] [address] Work Phone: 10-05-2022 Chief complaint Narrative - [...] and address.CC: Follow up appt for ADHD JR-Wkgoglkjpi-Ulvdge [address] [place] [address] Work Phone: 07-27-2022 Chief complaint Narrative - Reported An interactive audio and video telecommunication system which permits real time communications between the patient (at the originating site) and provider (at the distant site) was utilized to provide this telehealth service.Verbal consent was requested and obtained from JULIO GA on this date, 07/27/2022 03:30 PM , for a telehealth visit.Start Time: 1534 End Time: 1554 Duration: 20 minPatient identified by name, , and address.CC: Follow up appt for ADHD MW-Xeqymrfmdn-Lbiolr [address] [place] [address] Work Phone: 07-27-2022 Chief complaint Narrative - Reported An interactive audio and video telecommunication system which permits real time communications between the patient (at the originating site) and provider (at the distant site) was utilized to provide this telehealth service.Verbal consent was requested and obtained from JULIO GA on this date, 07/27/2022 03:30 PM , for a telehealth visit.Start Time: 1534 End Time: 155 Duration: 20 minPatient identified by name, , and address.CC: Follow up appt for ADHD DM-Pltcgjxyqe-Wmeghx [address] [place] Work Phone: 07-27-2022 History of Present illness [...] of the last Controlled Substance Agreement: 03/30/22 RS-Nqooidxtdc-Eqrhzy [facility] [place] Work Phone: 07-27-2022 History of Present illness [...] of the last Controlled Substance Agreement: 03/30/22 YT-Txzdndavsv-Xrarbv [address] [place] [address] Work Phone: 06-26-2022 History of Present illness [...] of the last Controlled Substance Agreement: 03/30/22 LZ-Dugxhcscrs-Gmefwq [address] [place] [address] Work Phone: 06-26-2022 History of Present illness [...] of the last Controlled Substance Agreement: 03/30/22 LM-Sykngemvlx-Fwfame [address] [place] [address] Work Phone: 06-24-2022 Chief complaint Narrative - [...] and address.CC: Follow up appt for ADHD FQ-Udnwxwfuyg-Psepph [address] [place] [address] Work Phone: 06-24-2022 Chief complaint Narrative - [...] and address.CC: Follow up appt for ADHD ZY-Juyylprarc-[place]weia [place] Work Phone: 05-29-2022 History of Present illness [...] of the last Controlled Substance Agreement: 03/30/22 XF-Msuekmmytl-Pejmrx [address] [place] [address] Work Phone: 05-29-2022 Chief complaint Narrative - [...] and address.CC: Follow up appt for ADHD MA-Fxvssgnzwz-Vcojxw [address] [place] [address] Work Phone: 05-29-2022 Chief complaint Narrative - [...] and address.CC: Follow up appt for ADHD MI-Baalnhlpyl-Bungme [address] [place] [address] Work Phone: 05-29-2022 Chief complaint Narrative - [...] and address.CC: Follow up appt for ADHD BK-Wopeodykkd-Fgejga [address] [place] [address] Work Phone: 05-06-2022 Chief complaint Narrative - [...] and address.CC: Follow up appt for ADHD RB-Ofisjpudqk-Eaniqu [address] [place] [address] Work Phone: 05-06-2022 Chief complaint Narrative - [...] and address.CC: Follow up appt for ADHD EU-Gamutqihxy-Yzsszl [address] [place] [address] Work Phone: 05-06-2022 History of Present illness [...] of the last Controlled Substance Agreement: 03/30/22 JR-Nnxiwgaudv-Qitplr [address] [place] [address] Work Phone: 05-06-2022 History of Present illness [...] of the last Controlled Substance Agreement: 03/30/22 IF-Ymzlvgbeqa-Caggse [address] [place] [address] Work Phone: 03-30-2022 Chief complaint Narrative - Reported An interactive audio and video telecommunication system which permits real time communications between the patient (at the originating site) and provider (at the distant site) was utilized to provide this telehealth service.Verbal consent was requested and obtained from JULIO HARMEET on this date, 03/30/2022 04:00 PM , for a telehealth visit.Start Time: 1602 End Time: Duration: minPatient identified by name, , and address.CC: Follow up appt for ADHD VF-Gvmynbxywj-Sbclyy [address] [place] [address] Work Phone: 03-30-2022 Chief complaint Narrative - Reported An interactive audio and video telecommunication system which permits real time communications between the patient (at the originating site) and provider (at the distant site) was utilized to provide this telehealth service.Verbal consent was requested and obtained from JULIO BRANCHT on this date, 03/30/2022 04:00 PM , for a telehealth visit.Start Time: 1602 End Time: Duration: minPatient identified by name, , and address.CC: Follow up appt for ADHD BI-Chxqlarzha-Vavlkl [address] [place] [address] Work Phone: 03-30-2022 Chief complaint Narrative - Reported An interactive audio and video telecommunication system which permits real time communications between the patient (at the originating site) and provider (at the distant site) was utilized to provide this telehealth service.Verbal consent was requested and obtained from JULIO HARMEET on this date, 03/30/2022 04:00 PM , for a telehealth visit.Start Time: 1602 End Time: 1630 Duration: 28 minPatient identified by name, , and address.CC: Follow up appt for ADHD GK-Xgiujtxqmd-Ddpvoh [place] Work Phone: 03-30-2022 History of Present illness [...] however 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 Some days she wants [...] No.Last urine drug screening date/ordered today: 04/02/21 CX-Fihysczlct-Psojvn [place] Work Phone: 02-17-2022 Chief complaint Narrative - Reported An interactive audio and video telecommunication system which permits real time communications between the patient (at the originating site) and provider (at the distant site) was utilized to provide this telehealth service.Verbal consent was requested and obtained from JULIO GA on this date, 02/17/2022 09:30 AM , for a telehealth visit.Start Time: 929 End Time: Duration: minPatient identified by name, , and address.CC: Follow up appt for ADHD VH-Mvjxzizwjf-Mjebzo [place] Work Phone: 01-19-2022 Chief complaint Narrative - Reported An interactive audio and video telecommunication system which permits real time communications between the patient (at the originating site) and provider (at the distant site) was utilized to provide this telehealth service.Verbal consent was requested and obtained from JULIO GA on this date, 01/19/2022 11:30 AM , for a telehealth visit.Start Time: 1132 End Time: 1150 Duration: 18 minPatient identified by name, , and address.CC: Follow up appt for ADHD RP-Teezfxqhbi-Tvqdin [address] [place] [address] Work Phone: 12-29-2021 Chief complaint Narrative - Reported An interactive audio and video telecommunication system which permits real time communications between the patient (at the originating site) and provider (at the distant site) was utilized to provide this telehealth service.Verbal consent was requested and obtained from JULIO GA on this date, 12/29/2021 04:00 PM , for a telehealth visit.Start Time: 1600 End Time: Duration: minPatient identified by name, , and address.CC: Follow up appt for ADHD KV-Rpjxujbocn-Czblby [address] [place] [address] Work Phone: 12-29-2021 History of Present illness [...] No.Last urine drug screening date/ordered today: 04/02/21 LN-Watvpdirqz-Tdzzmh [address] [place] [address] Work Phone: 12-11-2021 Chief complaint Narrative - Reported An interactive audio and video telecommunication system which permits real time communications between the patient (at the originating site) and provider (at the distant site) was utilized to provide this telehealth service.Verbal consent was requested and obtained from JULIO GA on this date, 12/11/2021 04:30 PM , for a telehealth visit.Start Time: 1631 End Time: Duration: minPatient identified by name, , and address.CC: Follow up appt for ADHD QZ-Pkeszgozxk-Pjeauy [address] [place] [address] Work Phone: 12-11-2021 Chief complaint Narrative - Reported An interactive audio and video telecommunication system which permits real time communications between the patient (at the originating site) and provider (at the distant site) was utilized to provide this telehealth service.Verbal consent was requested and obtained from JULIO GA on this date, 12/11/2021 04:30 PM , for a telehealth visit.Start Time: 163 End Time: 1700 Duration: 28 minPatient identified by name, , and address.CC: Follow up appt for ADHD TE-Hlrcwgwrcy-Ljegjg [address] [place] [address] Work Phone: 10-30-2021 Chief complaint Narrative - [...] and address.CC: Follow up appt for ADHD LZ-Rsowacwjbb-Gslgad [address] [place] Work Phone: 10-30-2021 History of Present illness [...] of a benzodiazepine and opioid? No. [place] [address] [place] Work Phone: 10-02-2021 History of Present illness [...] combination of a benzodiazepine and opioid? No. JM-Kjhddlpuuo-Dqkrts [place] Work Phone: 10-02-2021 Chief complaint Narrative - [...] and address.CC: Follow up appt for ADHD OQ-Unvbkxxips-Jlpwjj [place] Work Phone: 04-02-2021 History of Present illness [...] She denies any homicidal or suicidal ideation. [facility] Work Phone: 02-22-2021 History of Present illness [...] combination of a benzodiazepine and opioid? No. UT-Nsjgxiitjt-Tcqrlz [place] Work Phone: 06-13-2020 History of Present illness Narrative 24-year-old female for start of medication for adult ADHD. She has had a comprehensive work-up over the last 6 months. Formally diagnosed with adult ADHD. [facility] Work Phone: documented in this encounter [facility] Work Phone: History of Present illness Byenzspcz45-fgdx-gww female presents for complete physical exam. No acute complaints. 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 States shewas feeling overwhelmed with daily life . She was diagnosed with ADHD in Oct [address] Barrera at [facility] (Report on file) and was working [...] combination of a benzodiazepine and opioid? No. ET-Qprlnrsdkj-Krmpli [place] Work Phone: History of Present illness Narrative* [...] combination of a benzodiazepine and opioid? No. 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 Some daysshe wants to [...] Last urine drug screening date/ordered today: 04/02/21 SZ-Qpqimhtdtc-Fbcxyp [place] Work Phone: History of Present illness Narrative* [...] of the last Controlled Substance Agreement: 03/30/22 HU-Frsorutvrn-Yliogc [address] [place] Work Phone: Family History No Family History Records Found Mother Name Dates Details Family history of diabetes nura palomino(V18.0, Z83.3) Status:Active Mother Name Dates Details Family history of diabetes nura palomino(V18.0, Z83.3) Status:Active Mother Name Dates Details Family [...] of diabetes m ellitus: Mother(V18.0, Z83.3) Status:Active Chief Complaint Patient here [...] content) DATE CREATED AUTHOR AUTHOR'S ORGANIZ ATION 03/25/2023 [facility] FOR RECORDS PERTAINING TO PATIENTS WHO ARE [...] BE BASED ON THE PRIMARY CLINICAL RECORDS. [facility]. provides no warranty or guarantee of the accuracy or completeness of information in this document.
[2023-04-12 10:46] LABS: Glucose GTT-Gestation. Fasting 100 mg/dL (<105)
[2023-04-12 11:57] LABS: Glucose GTT-Gestational 1 Hr 185 mg/dL (<190)
[2023-04-12 12:45] LABS: Glucose GTT-Gestational 2 Hr 161 mg/dL (<165)
[2023-04-12 13:53] LABS: Glucose GTT-Gestational 3 Hr 120 L (<145)
== END | disposition home or self-care (01) ==
LOC: LAB 10:05
PROVIDERS: PCP Family Medicine; Visit Provider Nurse Practitioner Women's Health
DX: Z13.1 Encounter for screening for diabetes mellitus (principal)
CPT/HCPCS: 36415; 82951; 82952

== ENCOUNTER 2023-04-21 15:53 | Outpatient (RCR) | payer BC, SELFPAY | END 2023-04-22 23:59 | LOC: NS 15:53 | PROVIDERS: PCP Family Medicine; Referring Provider Nurse Practitioner Women's Health; Visit Provider Nurse Practitioner Women's Health | DX: Z71.3 Dietary counseling and surveillance (principal); O24.419 Gestational diabetes mellitus in pregnancy, unspecified control | CPT/HCPCS: 97802 ==

== ENCOUNTER 2023-04-26 18:07 | Outpatient (RCR) | payer BC, SELFPAY ==
--- NOTE | 2023-04-26 19:38 | HP.PTEVAL_ITS ---
Patient's Visit Information Visit Information Visit Information: JULIO GONZALEZ is a 27 year old F referred to Physical Therapy by Dr. Joann Oscar MD with a diagnosis of PELVIC PAIN AFFECTING . Date of Evaluation: 04/26/23 Physical Therapist: Jany Wilson PT, Cert MDT Visit Plan Frequency: 2-3x /Week Duration: 4-6 Weeks Plan: AQUATIC THERAPY 2-3 TIMES A WEEK X 4-6 WKS FOR CROWDER RELIEF. FOCUS ON POSTURE CORRECTION AND CORE STRENGTH AND STABILITY. GENTLE LE STRETCHING. HEP. 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 PLANNING FOR VAGINAL IF POSSIBLE. Disability: NO Present symptoms: LOW BACK PAIN. L BUTTOCK PAIN. L HIP FLEXOR/GROIN AREA PAIN. PATIENT DENIES SHANE LE NUMBNESS AND TINGING. NO R LE SX'S. LEG CRAMP WEDNESDAY NIGHT RESULTING IN RESIDUAL L CALF PAIN. PATIENT DENIES PAIN IN GENITAL AREA. Present since: ABOUT 5 MONTHS AGO DURING FIRST TRIMESTER OF . Pain Scale: WORST 5/10, LEAST 0/10 Currently: 1/10 Is it getting better, worse or staying the same: WORSENING. Commenced as a result of: Symptoms at onset: LOW BACK ACHE AND L BUTTOCK ACHE Worse: GOING UP AND DOWN STEPS, SLEEPING ON SIDES, ROLLING OVER IN BED, GETTING IN AND OUT OF CAR, PUTTING PANTS ON Better: MASSAGE L LB AREA, PIRIFORMIS STRETCH LLE. Disturbed sleep: YES Previous history/Previous treatment: UNREMARKABLE Treatment this episode: CHIROPRACTIC X 7 VISITS - SPINE (UPPER, MIDDLE AND LOWER) AND HIP ADJUSTMENTS WITHOUT BENEFIT. Coughing/sneezing/straining: NEGATIVE FOR INCREASED PAIN. Gait: THE PAIN CAUSES LIMP AND MORE SO NOW WITH CALF SORENESS FROM CRAMP. IN THE NIGHT AND IN THE MORNING HAS TO TAKE BREAKS AND SIT TO GET GOING BUT THEN CAN USUALLY PUSH THROUGH THE REST OF THE DAY. Bowel or Bladder Dysfunction: NO Accidents: NO Unexplained weight loss: NO Imaging: NO PMH/Recent major surgery: GESTATIONAL DIABETES Objective Objective: Sitting/Standing Posture: SEATED SLOUCHED. STANDING INCREASED LORDOSIS. NO RELEVANT LATERAL SHIFT. FORWARD HEAD. GENU RECURVATUM SHANE. Active Correction of posture: PATIENT IS ABLE TO PARTIALLY CORRECT WITH CUEING BUT NOT MAINTAIN AND THIS GIVES HER SOME LOW BACK AND HIP PAIN RELIEF BUT IS UNCOMFORTABLE ON HER ABDOMEN IN STANDING. POSTURE CORRECTION IN SITTING ALSO DECREASES HER SX'S BUT UNABLE TO MAINTAIN. Other Observations: INDEP TRANSFERS SIT TO STAND WITHOUT UE ASSIST. INDEP GAIT WITHOUT AD WITH MILD LIMP ON L LE. FAIR TO GOOD CADANCE. Sensory deficit: SHANE LE LIGHT TOUCH SENSATION GROSSLY INTACT AND SYMMETRICAL ROM deficit: TIGHT SHANE CALVES L >R. MILD SHANE HS TIGHTNESS. SHANE HIP FLEXOR TIGH TNESS. MILD L HIP IR/ER TIGHTNESS COMPARED TO R. Motor deficit: SHANE LE STRENGTH 5/5 WITH MMT'ING EXCEPT L HIP ADD, IR AND ER 4- /5, AND R HIP 4/5. MILD L ANTERIOR HIP/GROIN PAIN WITH L HIP ADD, IR AND ER TESTING BUT SIGNIFICANTLY LESS PAIN WITH CORE ENGAGED. Reflexes: 2/3 SHANE LE'S. Dural Signs: POSITIVE LLE. Lumbar mvmt loss: flex - NIL ext - NIL R SG - NIL L SG - NIL PATIENT DENIES PAIN WITH LUMBAR ROM TESTING ALL PLANES. SHANE SLS TESTING PROVOKES L GROIN PAIN. Core strength: POOR Palpation: NO ACUTE TENDERNESS BUT PATIENT REPORTS THERE ARE TIMES SHE IS TENDER IN THE L GROIN AREA WHEN SHE IS IN A LOT OF PAIN. TREATMENT: NEUROMUSCULAR REEDUCATION - RETRAINING OF MVMT AND POSTURE FOR SITTING, LYING AND STANDING ACTIVITIES. Balance/Special Test Scores Oswestry Low Back Score: 8 Goals Goal 1:: DECREASE C/O BACK AND L LE SX'S BY AT LEAST 50% TO RELIEVE ADL'S. Goal Time Frame: 4-6 Weeks Goal 2:: IMPROVE CORE AND LE STRENGTH AND STABILITY TO IMPROVE FUNCTIONAL GAIT Goal Time Frame: 4-6 Weeks Goal 3:: INCREASE SHANE LE FLEXIBILITY TO DECREASE STRESS ON LOW BACK AND PELVIS Goal Time Frame: 4-6 Weeks Goal 4:: IMPROVE POSTURAL STENGTH AND ENDURANCE EVIDENCED BY PATIENTS ABILITY TO MAINTAIN CORRECTION THROUGHOUT PT SESSIONS. Goal Time Frame: 4-6 Weeks Goal 5:: INDEP HEP Goal Time Frame: 4-6 Weeks Rehabilitation Potential Physical Therapy Diagnosis: THIS PATIENT PRESENTS TO PT WITH C/O L LOW BACK, B UTTOCK, HIP AND GROIN PAIN. SHE HAS GAIT AND SLEEP IMPAIRMENT, CORE AND HIP WEAKNESS L>R AND LE TIGHTNESS. Rehabilitation Potential: Good Anticipated Interventions Patient/Client Instruction: Educate patient on: Condition, Plan of Care and Risk Factors For the Purpose of:: To improve self management Therapeutic Exercise to Include: Strength training, Body mechanics, Postural training, Flexibilty training, Gait and locomotor training, Neuromotor development, In an aquatic setting and Dynamic Lumbar Stabilization For the Purpose of:: To decrease pain, To improve muscle performance and motor function, To increase tolerance to activity/condition/position, To improve ability of physical actions for home/community/work/leisure, To improve gait and locomotor functions and To increase flexibility/ROM Text: Thank you for the opportunity to evaluate your patient. For Medicare and Medicare HMO plans, please review the plan of care and approve it. It will need to be FAXED BACK to us at [phone] for Medicare purposes. For Medicare only, by signing this I certify the plan of care. Please let me know if there are questions or concerns regarding this plan of care. Physician Signature: Date:
--- NOTE | 2023-06-13 21:23 | HP.PT.NRP ---
Patient Information Patient Information: JULIO GONZALEZ was seen in my office for initial evaluation on 04/26/23. The following Plan of Care was established for this patient: POC Established Initial Frequency: 2-3x /Week Initial Duration: 4-6 Weeks Anticipated Interventions Patient/Client Instruction: Educate patient on: Condition, Plan of Care and Risk Factors For the Purpose of:: To improve self management Therapeutic Exercise to Include: Strength training, Body mechanics, Postural training, Flexibilty training, Gait and locomotor training, Neuromotor development, In an aquatic setting and Dynamic Lumbar Stabilization For the Purpose of:: To decrease pain, To improve muscle performance and motor function, To increase tolerance to activity/condition/position, To improve ability of physical actions for home/community/work/leisure, To improve gait and locomotor functions and To increase flexibility/ROM Last Seen Last Seen: This patient was last seen in our office 04/26/23. Pertinent comments regarding their Physical therapy will appear below: This patient has not returned to Physical Therapy for more visits and is appropriate to return to MD for further follow-up as needed. At this point I will be discontinuing this patient from physical therapy. I would be happy to see this patient again in the future if found appropriate by the physician. Thank you! Jany Wilson, PT, Cert MDT Balance/Gait/Functional tests Balance/Special Test Scores Oswestry Low Back Score: 8
== END 2023-04-26 19:00 | disposition home or self-care (01) ==
LOC: PT 18:07
PROVIDERS: PCP Family Medicine; Referring Provider Obstetrics & Gynecology; Visit Provider Obstetrics & Gynecology
DX: O26.899 Other specified pregnancy related conditions, unspecified trimester (principal); R10.2 Pelvic and perineal pain
CPT/HCPCS: 97112; 97162

== ENCOUNTER 2023-05-10 16:55 | Outpatient (RCR) | payer BC, SELFPAY | END 2023-05-23 23:59 | LOC: DC 16:55 | PROVIDERS: PCP Family Medicine; Referring Provider Nurse Practitioner Women's Health; Visit Provider Nurse Practitioner Women's Health | DX: Z71.3 Dietary counseling and surveillance (principal); O24.419 Gestational diabetes mellitus in pregnancy, unspecified control | CPT/HCPCS: 97803 ==

== ENCOUNTER → 2023-05-13 | Outpatient (CLI) | payer BC, SELFPAY ==
--- NOTE | 2023-05-13 16:07 | US_ITS ---
EXAM: US BIOPHYSICAL PROFILE WITHOUT NON-STRESS TESTING CLINICAL INDICATION: well being TECHNIQUE: Real-time ultrasound of the maternal pelvis for biophysical profile evaluation with image documentation. COMPARISON: No relevant prior studies available. FINDINGS: BREATHING MOVEMENTS: Present. Score 2/2. GROSS BODY MOVEMENTS: Present. Score 2/2. TONE: Present. Score 2/2. QUALITATIVE AMNIOTIC FLUID VOLUME: Amniotic fluid volume is 12.36 cm with largest vertical pocket of 3.5 cm. HEART RATE: heart rate: 140 bpm. PRESENTATION: Cephalic presentation. PLACENTA: Posterior placenta. US/Biophysical Prof W/O Non Stres IMPRESSION: No acute findings. Normal biophysical profile with score of 8/8. Electronically Signed: Alexy Maxwell DO at 23:57 EDT ,
== END | disposition home or self-care (01) ==
LOC: US 16:06
PROVIDERS: PCP Family Medicine; Referring Provider Obstetrics & Gynecology; Visit Provider Obstetrics & Gynecology
DX: O09.90 Supervision of high risk pregnancy, unspecified, unspecified trimester (principal); Z3A.00 Weeks of gestation of pregnancy not specified
CPT/HCPCS: 76819

== ENCOUNTER → 2023-05-18 | Outpatient (CLI) | payer BC, SELFPAY | END | disposition home or self-care (01) | LOC: LABSPEC 10:46 | PROVIDERS: PCP Family Medicine; Referring Provider Obstetrics & Gynecology; Visit Provider Obstetrics & Gynecology | DX: O09.90 Supervision of high risk pregnancy, unspecified, unspecified trimester (principal); Z3A.00 Weeks of gestation of pregnancy not specified | CPT/HCPCS: 87081 ==

== ENCOUNTER → 2023-05-21 | Outpatient (CLI) | payer BC, SELFPAY ==
--- NOTE | 2023-05-21 07:50 | US_ITS ---
STUDY: OBSTETRICAL ULTRASOUND - BIOPHYSICAL PROFILE REASON FOR EXAM: Female, 27 years old well being, gestational diabetes LMP: September 07, 2022. PRIOR ULTRASOUND: Comparison is made with prior study dated May 13, 2023. TECHNIQUE: Transabdominal TECHNICAL QUALITY: Adequate. FINDINGS: There is a single intrauterine fetus. The fetus is in a cephalic presentation. There is demonstrated cardiac activity with a heart rate of 136 bpm. There is a normal amniotic fluid volume. The largest amniotic fluid pocket measures 3.1 cm x 3.9 cm. The amniotic fluid index (JEFF) is 7.6 cm. The placenta is posterior in location and is not low lying. There are Grade 1 placental changes. Age by LMP: 36 weeks, 4 days. REDD by LMP: June 14, 2023. age by current US: 37 weeks, 4 days. REDD by current US: June 07, 2023. BIOPHYSICAL PROFILE: Breathing Movements (FBM): 2 Gross Body Movements (GBM): 2 Tone (FT): 2 Amniotic Fluid Volume (AFV): 2 TOTAL SCORE: 8 / 8 IMPRESSION: Normal biophysical profile of 8/8. Electronically Signed: Marquis Shukla MD at 9:49 EDT , STUDY: SECOND AND THIRD TRIMESTER OBSTETRICAL ULTRASOUND - LIMITED REASON FOR EXAM: Female, 27 years old well being, gestational diabetes LMP: September 07, 2022 PRIOR ULTRASOUND: Comparison is made with prior study dated May 13, 2023. TECHNIQUE: Transabdominal TECHNICAL QUALITY: Adequate. FINDINGS: There is a single intrauterine fetus. The fetus is in a cephalic presentation. There is demonstrated cardiac activity with a heart rate of 136 bpm. There is a normal amniotic fluid volume. The largest amniotic fluid pocket measures 3.1 cm x 3.9 cm. The amniotic fluid index (JEFF) is 6.4 cm x 7.6 cm. The placenta is posterior in location and is not low lying. There are Grade 1 placental changes. The cervix was not measured due to the head positioning. BIOMETRY: BPD: 9.39 cm: 38 weeks, 1 days HC: 33.68 cm: 38 weeks, 4 days AC: 32.99 cm: 36 weeks, 6 days FL: 6.83 cm: 35 weeks, 1 days Age by LMP: 36 weeks, 4 days. REDD by LMP: May 25, 2019. age by current US: 37 weeks, 4 days. REDD by current US: June 07, 2023. Estimated weight: 3031 grams, +/- 454 grams, 59 percentile. US/Biophysical Prof W/O Non Stres IMPRESSION: Single live intrauterine gestation with a mean gestational age of 37 weeks and 4 days. Electronically Signed: Marquis Shukla MD at 9:51 EDT ,
== END | disposition home or self-care (01) ==
PROVIDERS: PCP Family Medicine; Referring Provider Obstetrics & Gynecology; Visit Provider Obstetrics & Gynecology
DX: O24.419 Gestational diabetes mellitus in pregnancy, unspecified control (principal); Z3A.00 Weeks of gestation of pregnancy not specified
CPT/HCPCS: 76816; 76819

== ENCOUNTER 2023-05-24 14:32 | Outpatient (RCR) | payer BC, SELFPAY | END 2023-06-22 23:59 | LOC: DC 14:32 | PROVIDERS: PCP Family Medicine; Referring Provider Nurse Practitioner Women's Health; Visit Provider Nurse Practitioner Women's Health | DX: Z71.3 Dietary counseling and surveillance (principal); O24.419 Gestational diabetes mellitus in pregnancy, unspecified control | CPT/HCPCS: 97803 ==

== ENCOUNTER → 2023-06-04 | Outpatient (CLI) | payer BC, SELFPAY ==
--- NOTE | 2023-06-04 18:22 | US_ITS ---
STUDY: OBSTETRICAL ULTRASOUND - BIOPHYSICAL PROFILE REASON FOR EXAM: Female, 27 years old well being LMP: 09/07/2022 PRIOR ULTRASOUND: 05/21/2023 TECHNIQUE: Transabdominal TECHNICAL QUALITY: Adequate. FINDINGS: There is a single intrauterine fetus. The fetus is in a cephalic presentation. There is demonstrated cardiac activity with a heart rate of 160 bpm. There is a normal amniotic fluid volume. The largest amniotic fluid pocket measures 3.9 cm. The amniotic fluid index (JEFF) is 10.0 cm. The placenta is posterior in location and is not low lying. There are Grade 2 placental changes. Age by LMP: 38 weeks, 4 days. REDD by LMP: 06/14/2023. BIOPHYSICAL PROFILE: Breathing Movements (FBM): 2 Gross Body Movements (GBM): 2 Tone (FT): 2 Amniotic Fluid Volume (AFV): 2 TOTAL SCORE: US/Biophysical Prof W/O Non Stres IMPRESSION: Normal biophysical profile of 09/29. Electronically Signed: Vikas Quinteros MD at 20:34 EDT ,
== END | disposition home or self-care (01) ==
LOC: US 18:15
PROVIDERS: PCP Family Medicine; Referring Provider Obstetrics & Gynecology; Visit Provider Obstetrics & Gynecology
DX: O24.419 Gestational diabetes mellitus in pregnancy, unspecified control (principal); Z3A.00 Weeks of gestation of pregnancy not specified
CPT/HCPCS: 76819

== ENCOUNTER 2023-06-07 07:06 | Inpatient (IN) | payer BC, SELFPAY ==
[2023-06-07] VITALS (31 sets, daily range): BP systolic 98–123; BP diastolic 55–78; PULSE 38–117; RESP 16–18; TEMP 36.1–37; O2SAT 77–100; BMI 30.1
[2023-06-07] MEDS: Lactated Ringers 1,000 ML 50 ML IV (07:45)
[2023-06-07 07:54] LABS: Absolute Lymphocyte Count 1.23 X10^3/uL (0.83-4.51); Absolute Neutrophil Count 6.7 X10^3/uL (2.0-7.7); Basophil# 0.03 X10^3/uL; Basophil% 0.3 % (0-1); Eosinophil# 0.15 X10^3/uL; Eosinophils% 1.7 % (0-5); Hematocrit 35.8 % (37-47); Lymphocyte # 1.23 X10^3/ul (0.83-4.51); Lymphocyte % 13.8 % (19-41); Mean Corp Hgb Conc 33.5 g/dL (32-36); Mean Corpuscular Hgb 30.2 pg (27.0-32.0); Mean Corpuscular Volume 89.9 fL (81-99); Monocyte# 0.71 X10^3/uL; NRBC Flagged by Analyzer 0 % (0-5); Neutrophil # 6.72 X10^3/uL (2.7-7.7); Neutrophil % 75.5 % (47-70); Platelet Count 247 K/mm3 (150-450); RBC Distribution Width CV 12.1 % (11.6-14.6); RBC Distribution Width SD 39.6 fl (35.1-43.9); Red Blood Count 3.98 M/mm3 (4.2-5.4); White Blood Count 8.9 K/mm3 (4.4-11.0)
[2023-06-07] MEDS: Oxytocin 15 Units/NS 250ml 15 UNITS/250 ML IV.SOLN 2 UNITS IV (08:49)
--- NOTE | 2023-06-07 08:50 | HP.PCM.OB_ITS ---
HPI - General General Date of Admission: 06/07/23 HPI Narrative JULIO GONZALEZ, is a 27 F who presents at 39 weeks for IOL for GDM on metformin. Maternal Data Information REDD Calculator Estimated Delivery Date Method Current WG Current Estimate 06/14/23 LMP (Certain) 39w 0d PFSH PFS Medical History (Updated 06/07/23 @ 08:55 by Lorena Grullon CNM) Anxiety Asthma Depression Gestational diabetes Home Medications cetirizine 10 mg capsule (Zyrtec) 10 mg PO DAILY PRN allergies 08/20/22 [History Last Taken Unknown] cholecalciferol (vitamin D3) 50 mcg (2,000 unit) capsule 50 mcg PO DAILY 08/20/22 [History Last Taken Unknown] iron 110 mg-folate6 1 mg-C 175 mg-B12 12 bub-omukek-aflees-dss capsule cap PO 08/20/22 [History Last Taken Unknown] omega 2-etz-lvc-fish oil 300 mg-1,000 mg capsule (Fish Oil) 1 cap PO DAILY see provider note 08/20/22 [History Last Taken Unknown] sertraline 50 mg tablet (Zoloft) 50 mg PO DAILY anxiety and depression 08/20/22 [History Last Taken Unknown] blood sugar diagnostic (Blood Glucose Test strips) #120 ea 04/12/23 [Rx Last Taken Unknown] blood-glucose meter #1 ea 04/12/23 [Rx Last Taken Unknown] lancets #200 ea 04/12/23 [Rx Last Taken Unknown] metformin 1,000 mg tablet 1,000 mg PO QHS GDM #30 tabs 05/13/23 [Rx Last Taken Unknown] Allergy/AdvReac Type Severity Reaction Status Date / Time sulfabenzamide Allergy Mild Rash Verified 06/07/23 07:50 Family History Mother Diabetes Grandmother Cancer Surgical History S/P wisdom tooth extraction Social History adopted: No household members: spouse current occupational status: employed current occupation: [employer] pets and animals: Yes pets and animals: dog(s) history of recent travel: Yes out of state: Yes sexually active: Yes Smoking Status: Never smoker details: social substance use type: does not use caffeine: No seatbelt use: always do you feel safe at home: Yes additional social history: spouse Simone History 1 Elective abortions Hx Para 0 Spontaneous abortions Hx # Term Pregnancies Ectopic pregnancies Hx # Pregnancies Multiple births # of living children Visit Details Expected Delivery Route/Plan Labor Preferences- CB/BF classes: encouraged labor support person: Simone labor intervention preferences: [] pain management options preferred: limited if possible cut cord/dad catch: yes : yes PP control planned: discussed possible routes of delivery and associated risks: [] special requests: [] Plans Covid status: [] Flu vaccine: declines Tdap vaccine: [] Rhogam: [] LARC form signed: [] Problem list reviewed and updated with the most current plan of care details and appropriate orders placed. Relevant counseling for the gestational age provided. Continue routine care and follow up unless otherwise noted in visit notes/problem list details OB Flowsheet Initial Weight: Not Recorded Date -?-?-?-?-?-?-?-?-?-?-?-?- EGA Weight BP Urine Prot -?-?-?-?-?-?-?-?-?-?-?-?- Glucose FHR FuHt Pres Dilation -?-?-?-?-?-?-?-?-?-?-?-?- Effaced St Visit Note 11/03/22 -?-?-?-?-?-?-?-?-?-?-?-?- 8w 1d 182 lb 2 oz 112/74 -?-?-?-?-?-?-?-?-?-?-?-?- 170 -?-?-?-?-?-?-?-?-?-?-?-?- KW-CRL cons with dates, has 40 day cycles. rescan next visit. 11/20/22 -?-?-?-?-?-?-?-?-?-?-?-?- 10w 4d 180 lb 2 oz 104/67 Nega tive -?-?-?-?-?-?-?-?-?-?-?-?- Negative 165 -?-?-?-?-?-?-?-?-?-?-?-?- KW-no vb/crampin g. having some hip discomfort. Recommend yoga,chiropractor and massage. Rescanned today-Cons with REDD 12/14/22 -?-?-?-?-?-?-?-?-?-?-?-?- 14w 0d 180 lb 8 oz 116/76 Nega tive -?-?-?-?-?-?-?-?-?-?-?-?- Negative 156 -?-?-?-?-?-?-?-?-?-?-?-?- JV- no lof, vagi nal bleeding, or cramping. No complaints but states that she is having a few episodes of waking up at night having ot use inhaler for asthma (see problem list) if persists will need to consult pulmonology. 01/18/23 -?-?-?-?-?-?-?-?-?-?-?-?- 19w 0d 183 lb 6 oz 119/75 Nega tive -?-?-?-?-?-?-?-?-?-?-?-?- Negative 142 -?-?-?-?-?-?-?-?-?-?-?-?- LC- no vb/crampi ng.has anatomy scheduled for wednesday. 02/17/23 -?-?-?-?-?-?-?-?-?-?-?-?- w 2d 178 lb 124/70 Negative -?-?-?-?-?-?-?-?-?-?-?-?- Negative 148 -?-?-?-?-?-?-?-?-?-?-?-?- MH-No VB, lof. G ood FM. Some left hip pain-will see chiro. MFM US ordered 28 wk check placenta 03/24/23 -?-?-?-?-?-?-?-?-?-?-?-?- 28w 2d 189 lb 8 oz 107/74 Nega tive -?-?-?-?-?-?-?-?-?-?-?-?- Negative 150 -?-?-?-?-?-?-?-?-?-?-?-?- MH-No VB, LOF. G ood FM. 28 wk labs-needs 3 hr. Larc done. Rhogam 04/06/23 -?-?-?-?-?-?-?-?-?-?-?-?- 30w 1d 196 lb 122/81 Negative -?-?-?-?-?-?-?-?-?-?-?-?- Negative 135 -?-?-?-?-?-?-?-?-?-?-?-?- SM- no vb lof go od fm no regular ctx 04/23/23 -?-?-?-?-?-?-?-?-?-?-?-?- 32w 4d 194 lb 2 oz 109/70 Nega tive -?-?-?-?-?-?-?-?-?-?-?-?- Negative 145 34 -?-?-?-?-?-?-?-?-?-?-?-?- JV- fasting and 2 hr pp glucose log reviewed and overall normal. Has 1 or 2 elevated fastings only. no lof, vaginal bleeding or dec fm. plan for 36/37 week growth scan 05/05/23 -?-?-?-?-?-?-?-?-?-?-?-?- 34w 2d 190 lb 112/72 Negative -?-?-?-?-?-?-?-?-?-?-?-?- Negative 135 35 -?-?-?-?-?-?-?-?-?-?-?-?- JV- fasting leve ls are still elevated x 2 but overall doing better on metformin. nst reactive today. planning NSTs twice weekly going forward. pt will return wednesday. 05/11/23 -?-?-?-?-?-?-?-?-?-?-?-?- 35w 1d 187 lb 105/70 Negative -?-?-?-?-?-?-?-?-?-?-?-?- Negative 140 -?-?-?-?-?-?-?-?-?-?-?-?- JV- nst today is reactive. glucose levels are improved. pt missed her last appt because she had fever and diarrhea. 05/13/23 -?-?-?-?-?-?-?-?-?-?-?-?- 35w 3d 187 lb 2 oz 110/70 Nega tive -?-?-?-?-?-?-?-?-?-?-?-?- Negative 140 -?-?-?-?-?-?-?-?-?-?-?-?- SM- no vb lof go od fm no regular ctx 05/18/23 -?-?-?-?-?-?-?-?-?-?-?-?- 36w 1d 187 lb 116/76 Negative -?-?-?-?-?-?-?-?-?-?-?-?- Negative 140 36 -?-?-?-?-?-?-?-?-?-?-?-?- SM- no vb lof go od fm noregular ctx gbs today BS controlled 05/25/23 -?-?-?-?-?-?-?-?-?-?-?-?- 37w 1d 187 lb 109/67 -?-?-?-?-?-?-?-?-?-?-?-?- 130 37 Cephalic 1 -?-?-?-?-?-?-?-?-?-?-?-?- 50 -3 JV- nst re ative. over 50% of fasting levels are still over 95 (95-111) patient does not want to start insulin and thinks metformin makes her sick every time she starts or increases dose. fluid dropped from 12 to 7 in a week last week JV- nst reative. over 50% of fasting levels are still over 95 (95-111) patient does not want to start insulin and thinks metformin makes her sick every time she starts or increases dose. fluid dropped from 12 to 7 in a week last week but is up to 11.3 today. NST reactive. 06/01/23 -?-?-?-?-?-?-?-?-?-?-?-?- 38w 1d 189 lb 111/74 Negative -?-?-?-?-?-?-?-?-?-?-?-?- Negative 130 2 -?-?-?-?-?-?-?-?-?-?-?-?- blood sugars are better controlled, plan IOL next week. bpp end of the week to repeat JEFF and assessment ROS Cardiovascular Cardiovascular: Denies abdominal pain, chest pain, diaphoresis or dyspnea Respiratory/Chest Respiratory/Chest: Denies change in mental status, chest congestion, chest tightness, cough, shortness of breath at rest, shortness of breath with exertion, breast mass, breast pain, breast skin changes, breast swelling, change in breast shape or nipple discharge Genitourinary Genitourinary: Reports change in urinary stream Musculoskeletal Musculoskeletal: Reports none Integumentary Integumentary: Reports none Neurologic Neurologic: Reports none Psychiatric Psychiatric: Reports none Endocrine Endocrinology: Reports none Hematologic/Lymphatic Hematologic/Lymphatic: Reports none Allergic/Immunologic Allergic/Immunologic: Reports none Vital Signs Vital Signs Vital Signs: 06/07/23 07:27 06/07/23 07:27 06/07/23 07:27 Temperature Temperature Source Temporal Pulse Rate 105 H Respiratory Rate Blood Pressure 122/76 H BP Systolic 122 BP Diastolic 76 06/07/23 07:27 06/07/23 07:27 Temperature 97.8 F Temperature Source Pulse Rate Respiratory Rate 16 Blood Pressure BP Systolic BP Diastolic Weight Weight: 186 lb 9.6 oz Body Mass Index (BMI) 30.1 Physical Exam Const alert, oriented x3 and no apparent distress General Appearance: cooperative, comfortable and well kempt Orientation / Consciousness: awake and oriented to person Exam Limitations: no limitations HEENT normocephalic Neck full ROM Chest inspection of chest normal Resp normal respiratory effort, normal air movement and no retractions Effort and Inspection: able to speak in complete sentences and symmetric chest movement Cardio regular rate Peripheral Pulses: pulses 2+ throughout GI normal to inspection, nondistended, normoactive bowel sounds Inspection: gravid no CVA tenderness and appearance of the vagina normal External Female Exam: normal appearance of the urethra; Negative for external lesion OB / External & Speculum: external exam normal Manual OB Exam: estimated gestational size appropriate, presentation cephalic, dilated 3, effaced 60 and station -2 Uterus Palpation: Negative for uterus tender Extremity normal to inspection Skin no rashes or lesions noted Neuro deep tendon reflexes 2+ bilaterally and gait normal Motor Exam: strength 5/5 throughout and clonus absent Psych Activity / Motor Behavior: appropriate eye contact Speech: normal speech Labs Labs Labs: Blood Type A NEGATIVE Antibody Screen NEGATIVE Hct 35.8 % (37-47) L Hgb 12.0 g/dL (12.0-15.0) Syphilis Total Ab Non-reactive Rubella IgG Antibody Reactive (Nonreactive) Hep Bs Antigen Non-Reactive (Nonreactive) Hepatitis C Antibody Non-Reactive (Nonreactive) Chlamydia DNA (NITISH) Negative (Negative) N.gonorrhoeae DNA (NITISH) Negative (Negative) HIV 1&2 Antibody Non-Reactive (Nonreactive) Glucose 1 Hr 50 gm 165 mg/dL (70-140) H Gest Glucose Tolerance MG/DL Assessment & Plan (1) Gestational diabetes: COMMENT: metformin increased to 1000mg qhs. 2x weekly nsts 32 weeks. PLAN: monitor glucose per protocol. (2) Rh negative status during : QUALIFIERS: Trimester: second trimester Qualified Code(s): O26.892 - Other specified related conditions, second trimester; Z67.91 - Unspecified blood type, Rh negative COMMENT: Rhogam at 28 weeks and PRN. PLAN: -cord blood at delivery, rhogam per protocol pp. (3) Supervision of high risk , antepartum: COMMENT: [id number] REDD 06/14/23 girl Spouse Simone (4) : QUALIFIERS: Weeks of gestation: 38 weeks Qualified Code(s): Z3A.38 - 38 weeks gestation of COMMENT: GBS neg, declines carrier, ntd, genetic screening. nl anatomy (5) MTHFR gene mutation: COMMENT: folate in PLAN: Plan -admit with routine orders -pitocin for induction for favorable cervix. castañeda=8 dr. vergara updated on admission, exam and poc. agrees with co-management for diabetes on metformin.
[2023-06-07 09:31] LABS: Syphilis Antibodies Non-reactive
[2023-06-07 09:40] LABS: Bedside Glucose 95 mg/dL (74-106)
[2023-06-07 10:36] LABS: Bedside Glucose 78 mg/dL (74-106)
--- NOTE | 2023-06-07 12:50 | PN.OBGYN_ITS ---
Subjective Subjective comfortable on pitocin. Objective Data Objective Data Vital Signs: Vital Signs Temp Pulse Resp BP Pulse Ox 98.6 F 80 16 122/71 H 97 06/07/23 12:06 06/07/23 12:06 06/07/23 12:06 06/07/23 12:06 06/07/23 12:06 Weight: 186 lb 9.6 oz Body Mass Index (BMI) 30.1 Intake & Output: Intake and Output for Last 24 Hours 06/05/23 06/06/23 06/07/23 23:59 23:59 23:59 Intake Total 18.63 / 18.63 Balance 18.63 / 18.63 Lab / Micro Data 06/07/23 07:45 Labs: Laboratory Results - last 24 hr 06/07/23 07:45: WBC 8.9, RBC 3.98 L, Hgb 12.0, Hct 35.8 L, MCV 89.9, MCH 30.2, MCHC 33.5, RDW Std Deviation 39.6, RDW Coeff of Guerline 12.1, Plt Count 247, MPV 10.0, Immature Gran % (Auto) 0.700, Neut % (Auto) 75.5 H, Lymph % (Auto) 13.8 L, [place] % (Auto) 8.0, Eos % (Auto) 1.7, Baso % (Auto) 0.3, Absolute Neuts (auto) 6.7, Absolute Lymphs (auto) 1.23, Nucleated RBC % 0, Syphilis Total Ab Non- reactive, Blood Type A NEGATIVE, Antibody Screen NEGATIVE 06/07/23 09:04: POC Glucose 95 06/07/23 10:18: POC Glucose 78 Physical Exam Resp normal respiratory effort, normal air movement and no retractions Manual OB Exam: dilated 3, effaced 60 and station -2 Amniotic Fluid: no amniotic fluid noted Assessment & Plan (1) Gestational diabetes: COMMENT: metformin increased to 1000mg qhs. PLAN: glucose stable (2) Encounter for induction of labor: COMMENT: favorable cervix. pitocin AROM'd at 1215, clear fluid
[2023-06-07] MEDS: LACTATED RINGERS 500 ML 999 ML IV (13:50)
[2023-06-07] MEDS: fentaNYL-bupivacaine (epidural) 100 ML BAG EPIDURAL ×2 (14:25→18:32)
[2023-06-07 14:56] LABS: Bedside Glucose 75 mg/dL (74-106)
[2023-06-07] MEDS: Lactated Ringers 1,000 ML 200 ML IV (17:54)
[2023-06-07 18:38] LABS: Bedside Glucose 57 mg/dL (74-106)
[2023-06-07] MEDS: Ondansetron 4 MG/2 ML Vial IV (18:38)
[2023-06-07 19:55] LABS: Bedside Glucose 77 mg/dL (74-106)
--- NOTE | 2023-06-07 21:06 | EX.PCM.OBRPT ---
Assessment & Plan (1) (spontaneous vaginal delivery): COMMENT: ALIZA Castillo IOL for GDM, Maternal Data Information REDD Calculator Estimated Delivery Date Method Current WG Current Estimate 06/14/23 LMP (Certain) 39w 0d Final REDD: 06/14/23 Final REDD Source: LMP Gestational age: 39 Vaginal Delivery Maternal Presentation Maternal Presentation: Medically Indicated Induction Maternal Presentation: at 39 weeks IOL for GDM, iol with pitocin and AROM. Type of Induction: Pitocin Operative Information Date of Procedure: 06/07/23 Pre-Operative Diagnosis: see problem list Post-Operative Diagnosis: Surgery / Procedure Performed: Spontaneous Vaginal Delivery Type of Anesthesia: Epidural Estimated Blood Loss: 350 Time of Delivery: 20:27 Findings Description of Procedure: Patient began pushing and delivered the head in the YAMEL presentation. The head was delivered atraumatically. The anterior and posterior shoulders delivered without complication followed by the rest of the infant and the infant was placed on the maternal abdomen. Delayed cord clamping was employed for approximately 60 seconds. Cord was clamped and cut and gentle traction was applied to the cord and the placenta delivered spontaneously immediately following it was noted to be intact with three-vessel cord. The perineum and vagina were inspected and noted to have second degree laceration, repaired with 3-0 . EBL was 350cc. Patient and tolerated delivery well. Presentation: Vertex Amniotic Membrane Rupture Type: Artificial Amniotic Fluid Description: Clear Placental Delivery Description: Spontaneous Placenta Disposition: [facility] Cord Vessel Description: 3 Vessels Cord Entanglement: None A Gender: Female (1 minute): 8 (5 minute): 9 Delayed Cord Clamping: Yes Post Vaginal Delivery Medications Given After Delivery: IV Pitocin Laceration: 2nd degree Procedures Urinary/Genital [id number]: [id number] Vaginal Delivery [facility]
--- NOTE | 2023-06-07 21:10 | DCINST_ITS ---
Discharge Instructions Diet Discharge Diet: No restrictions Activity Discharge Activity: May Not Drive and May Shower May resume sexual activity in: 6 weeks Weight Bearing Status: Full weight bearing Dressing / Incision Call your doctor if your incision/area has: Sudden Increased Bleeding, Increased Pain/ Swelling and Foul Smelling Discharge Call your doctor if you observe: Fever of 101 or Higher, Numbness or Tingling, Change in Color, Inability to urinate, Inability to have a bowel movement, Using more than 1 pad per hour, Shortness of breath, Dizziness, Fainting spells, Chest pain, Calf discomfort and Uncontrolled pain Follow Up Care Please Follow Up With: Lorena Grullon CNM When: 6 weeks , please call office to make an appointment. Congratulations on the of your baby! Test Results: Test results from this visit will be discussed in further detail at your follow- up appointment, if applicable. Discharge Plan Admission Admit Date/Time: 06/07/23 07:06 Attending Provider: Lorena Grullon Primary Care Provider: Ericka Salas Discharge Orders/Prescriptions Prescriptions: No Action Zyrtec 10 mg capsule 10 mg PO DAILY PRN (Reason: allergies ) sertraline [Zoloft] 50 mg tablet 50 mg PO DAILY cholecalciferol (vitamin D3) 50 mcg (2,000 unit) capsule 50 mcg PO DAILY [id number] 110 mg-1 mg -175 mg-12 mcg capsule PO omega 2-aci-zug-fish oil [Fish Oil] 300-1,000 mg capsule 1 cap PO DAILY metformin 1,000 mg tablet 1,000 mg PO QHS Qty: 30 5RF Rx Instructions: take at bedtime (DME) Blood Glucose Test Strip See Rx Instructions .MEDSUPPLY Qty: 120 5RF Rx Instructions: As directed-fasting & 2 hr post meals (DME) blood-glucose meter Misc See Rx Instructions .MEDSUPPLY Qty: 1 0RF Rx Instructions: As directed- Test fasting and 2 hours after meals (DME) lancets Misc See Rx Instructions .MEDSUPPLY Qty: 200 5RF Rx Instructions: As directed-fasting & 2 hr post meals Referrals / Follow Up: Ericka Salas DO [Primary Care Provider] -
[2023-06-07] MEDS: Oxytocin 15 Units/NS 250ml 15 UNITS/250 ML IV.SOLN 83 UNITS IV (21:17)
[2023-06-07 22:00] LABS: Bedside Glucose 92 mg/dL (74-106)
[2023-06-08] MEDS: Acetaminophen 500 MG Tablet 1000 MG PO ×3 (00:28→17:20)
[2023-06-08 03:42] VITALS: BP 105/65; PULSE 71; RESP 16; TEMP 36.7
[2023-06-08] MEDS: Naproxen 500 MG Tablet PO ×3 (04:22→21:43)
[2023-06-08 06:29] LABS: Bedside Glucose 92 mg/dL (74-106)
--- NOTE | 2023-06-08 07:44 | PN.OBGYN_ITS ---
Subjective Subjective Patient doing well without complaints. Tolerating PO. Ambulating and voiding without difficulty. Feeding well. Denies chest pain, shortness of breath, calf pain/swelling, fevers, chills, lightheadedness. Objective Data Objective Data Vital Signs: Vital Signs Temp Pulse Resp BP Pulse Ox 98.0 F 71 16 105/65 99 06/08/23 03:42 06/08/23 03:42 06/08/23 03:42 06/08/23 03:42 06/07/23 14:49 Weight: 186 lb 9.6 oz Body Mass Index (BMI) 30.1 Intake & Output: Intake and Output for Last 24 Hours 06/06/23 06/07/23 06/08/23 23:59 23:59 23:59 Intake Total 2260.00 / 2260.00 250 / 250 Output Total 1250 / 1250 1000 / 1000 Balance 1010.00 / 1010.00 -750 / -750 Lab / Micro Data 06/07/23 07:45 Labs: Laboratory Results - last 24 hr 06/07/23 07:45: WBC 8.9, RBC 3.98 L, Hgb 12.0, Hct 35.8 L, MCV 89.9, MCH 30.2, MCHC 33.5, RDW Std Deviation 39.6, RDW Coeff of Guerline 12.1, Plt Count 247, MPV 10.0, Immature Gran % (Auto) 0.700, Neut % (Auto) 75.5 H, Lymph % (Auto) 13.8 L, Andrew % (Auto) 8.0, Eos % (Auto) 1.7, Baso % (Auto) 0.3, Absolute Neuts (auto) 6.7, Absolute Lymphs (auto) 1.23, Nucleated RBC % 0, Syphilis Total Ab Non- reactive, Blood Type A NEGATIVE, Antibody Screen NEGATIVE 06/07/23 09:04: POC Glucose 95 06/07/23 10:18: POC Glucose 78 06/07/23 14:38: POC Glucose 75 06/07/23 17:57: POC Glucose 57 L 06/07/23 19:34: POC Glucose 77 06/07/23 21:42: POC Glucose 92 06/08/23 06:09: POC Glucose 92 ROS Constitutional Constitutional: Reports systems reviewed and no addt'l complaints, except as documented; Denies anorexia or headache(s) Cardiovascular Cardiovascular: Reports systems reviewed and no addt'l complaints, except as documented; Denies dizziness, dyspnea, nausea or tachypnea Respiratory/Chest Respiratory/Chest: Reports systems reviewed and no addt'l complaints, except as documented; Denies cough, dyspnea, shortness of breath at rest or tachypnea Gastrointestinal Gastrointestinal: Reports systems reviewed and no addt'l complaints, except as documented; Denies abdominal pain, constipation or nausea Genitourinary Genitourinary: Reports systems reviewed and no addt'l complaints, except as documented; Denies burning urination, difficulty urinating, dysuria, urinary frequency or urinary incontinence Musculoskeletal Musculoskeletal: Reports systems reviewed and no addt'l complaints, except as documented Integumentary Integumentary: Reports systems reviewed and no addt'l complaints, except as documented Neurologic Neurologic: Reports systems reviewed and no addt'l complaints, except as documented; Denies abnormal speech, dizziness or headache(s) Psychiatric Psychiatric: Reports systems reviewed and no addt'l complaints, except as documented Endocrine Endocrinology: Reports systems reviewed and no addt'l complaints, except as documented Hematologic/Lymphatic Hematologic/Lymphatic: Reports systems reviewed and no addt'l complaints, except as documented Physical Exam Const alert, oriented x3 and no apparent distress Neck full ROM Resp normal respiratory effort, normal air movement and no retractions Effort and Inspection: able to speak in complete sentences and symmetric chest movement GI soft to palpation Bladder / Kidney Exam: bladder normal to palpation Uterus Palpation: uterus fundus firm Extremity normal to inspection and full ROM Psych mental status grossly normal, thought process normal and cooperative Assessment & Plan (1) (spontaneous vaginal delivery): COMMENT: ALIZA Xiongiella IOL for GDM, PLAN: s/p PPD # 1 1. routine post delivery care 2. breast feeding- support given 3. rh positive 4. rubella immune (2) Gestational diabetes: COMMENT: metformin increased to 1000mg qhs. (3) Pelvic pain affecting : COMMENT: s/p chiropractor, discussed PT referral if desired (4) Asthma: QUALIFIERS: Asthma severity: unspecified severity Asthma persistence: unspecified Asthma complication type: unspecified Qualified Code(s): J45.909 - Unspecified asthma, uncomplicated COMMENT: allergy induced, has to use inhaler when in contact with dust, cats, and sometimes when wake up in the am (2-3 times a week) uses just albuterol, refill sent. currently using 1-2x a month (5) Rh negative status during : QUALIFIERS: Trimester: second trimester Qualified Code(s): O26.892 - Other specified related conditions, second trimester; Z67.91 - Unspecified blood type, Rh negative COMMENT: Rhogam at 28 weeks and PRN. Charges/Coding Multi Select Codes Urinary/Genital Urinary/Genital CPT Codes: No Charge
[2023-06-08 08:17] VITALS: BP 107/73; PULSE 77; RESP 16; TEMP 36.3; O2SAT 97
[2023-06-08] MEDS: Sertraline 50 MG Tablet PO (10:44)
[2023-06-08 12:30] VITALS: BP 98/64; PULSE 76; RESP 16; TEMP 36.2
[2023-06-08 16:07] LABS: Bedside Glucose 64 mg/dL (74-106)
[2023-06-08 16:07] LABS: Bedside Glucose 55 mg/dL (74-106)
[2023-06-08 17:00] VITALS: BP 109/66; PULSE 60; RESP 16; TEMP 36.1
[2023-06-08 20:59] VITALS: BP 109/55; PULSE 83; RESP 16; TEMP 36.1; O2SAT 96
[2023-06-09] MEDS: Acetaminophen 500 MG Tablet 1000 MG PO ×2 (01:09→07:29)
[2023-06-09 01:12] VITALS: BP 102/59; PULSE 68; RESP 16; TEMP 36.3; O2SAT 97
[2023-06-09] MEDS: Naproxen 500 MG Tablet PO (07:29)
[2023-06-09 07:33] VITALS: BP 109/71; PULSE 77; RESP 16; TEMP 36.2; O2SAT 96
--- NOTE | 2023-06-09 07:50 | PCM.PN.OB ---
Subjective Subjective Patient doing well without complaints. Tolerating PO. Ambulating and voiding without difficulty. Feeding well. Denies chest pain, shortness of breath, calf pain/swelling, fevers, chills, lightheadedness. Objective Data Objective Data Vital Signs: Vital Signs Temp Pulse Resp BP Pulse Ox O2 Del Method 97.1 F L 77 16 109/71 96 Room Air 06/09/23 07:33 06/09/23 07:33 06/09/23 07:33 06/09/23 07:33 06/09/23 07:33 06/09/23 07:33 Oxygen Delivery Method Room Air Weight: 186 lb 9.6 oz Body Mass Index (BMI) 30.1 Intake & Output: Intake and Output for Last 24 Hours 06/07/23 06/08/23 06/09/23 23:59 23:59 23:59 Intake Total 2260.00 / 2260.00 250 / 250 Output Total 1250 / 1250 1000 / 1000 Balance 1010.00 / 1010.00 -750 / -750 Lab / Micro Data 06/07/23 07:45 Labs: Laboratory Results - last 24 hr 06/07/23 18:16: POC Glucose 55 L 06/07/23 18:30: POC Glucose 64 L Physical Exam Const alert and oriented x3 HEENT normocephalic Eyes PERRL Neck full ROM Resp normal respiratory effort GI soft to palpation GI Narrative: FF below U Assessment & Plan (1) (spontaneous vaginal delivery): COMMENT: LC Briella IOL for GDM, (2) Gestational diabetes: QUALIFIERS: Gestational diabetes mellitus control: oral hypoglycemic-controlled Trimester: unspecified trimester Qualified Code(s): O24.415 - Gestational diabetes mellitus in , controlled by oral hypoglycemic drugs COMMENT: metformin increased to 1000mg qhs. stable. No med pp (3) Rh negative status during : QUALIFIERS: Trimester: second trimester Qualified Code(s): O26.892 - Other specified related conditions, second trimester; Z67.91 - Unspecified blood type, Rh negative COMMENT: Rhogam at 28 weeks and PRN. PLAN: Plan s/p PPD # 2 1. routine post delivery care 2. breast feeding- support given 3. rh negative 4. rubella immune 5. glucose stable 6. home today
[2023-06-09] MEDS: Senna/Docusate Sodium 1 Tablet PO (07:54)
[2023-06-09] MEDS: Sertraline 50 MG Tablet PO (10:07)
--- NOTE | 2023-06-09 12:01 | CASEMGMT ---
Social Work Assessment Labor and Delivery Unit Patient Address: [address] [place] [address] [place] [address] Phone number: [phone] Date of Referral: 06/08/23 Time of Referral:? [id number] Referred By: Lorena Grullon Date of Intervention: ?06/09/23? Time of Intervention:? 1000 Reason for Referral: history of anxiety and depression Sw completed chart review and acknowledges social work consult due to maternal mental health history. Sw presented to bedside and introduced self to mother of baby (DEX- Constance). Sw explained reason for sw involvement and completed psychosocial assessment. ? History obtained from: medical records, [facility] Household composition: Currently residing in the family home is DEX, MARU and now baby when ready for discharge. DXE denies any issues or concerns with their housing at this time. Patient's parent/guardian status:? DEX states that she and MARU have been together for 4 years, they met through DEX's cousin. MOB denies domestic violence or intimate partner violence. ? Medical History: ?DEX is 27 year old female who is 1, para 0- now 1 following labor and delivery of . DEX received routine care during with [facility]. DEX presented to hospital for an induction of labor on 06/07/23 at 39 weeks gestation. Baby girl, named Castillo [place], was born weighing 7lb 5oz and her apgars were 8 and 9 at one and five minutes of life, respectfully. Baby will be followed by Dr. Zee for pediatrics. MOB states that she has a breast pump for home. Educational Status:? Both parents graduated from high school. MOB obtained a college degree. MOB states that neither parent has difficulties with reading, learning or comprehension. Financial Status: Both parents are gainfully employed outside of the home. 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 Supplies:??MOB reports that they have obtained all necessary baby supplies, including: car seat, safe sleep space, clothes, diapers and wipes. Childcare/Caregiver(s):?MOB states that she will be the primary caregiver to baby along with FOB when he is not working. MOB states that when both parents have returned to work her mom will be their special forces communications sergeant. Transportation:Both parents have their drivers license and reliable means of transportation. No barriers. ?? Programs/Agencies Involved: ???Parents are not connected to any community resources that help them financially. DEX states that she has not been connected to a therapist, but does see a psychiatrist through [facility]. Children Services/Legal Issues:??? No history of involvement, no issues or concerns warranting a referral to be made at this time. Behavioral Health Issues: ??Mental Health History:??MOB reports that MARU does not have any mental health diagnoses. MOB reports that she has been diagnosed with anxiety. MOB states that she gets anxious about what to expect and the unknown. MOB states that now that baby is here she is anxious to go home and not having nursing staff to help her. MOB reports that she is prescribed zoloft and she can tell a difference with the medication. ? Substance Use History:?MOB denies substance use prior to and during . ? Family History:?MOB states that neither family has history of substance use or addiction issues, or significant mental health diagnoses. ? Drug Screens: ??No drug screens observed in chart review. Family/Social Stressors:? MOB denies any issues, concerns or stressors at this time. Support Systems: MOB states that both sets of grandparents are supportive. Depression/Shaken Baby/Safe Sleeping:? Sw educated MOB on signs and symptoms of baby blues and depression and anxiety. MOB expressed understanding. Sw explained shaken baby prevention and ABCs of safe sleep. MOB expressed understanding. MOB states that if she were to struggle with her mental health during this period [facility]OMirna would recognize her struggling and would know how to help and support her. ASSESSMENT:? MOB and baby are admitted following labor and delivery. MOB was talkative and engaging throughout completion of psychosocial assessment. MOB has obtained everything that baby needs and has natural supports in place. MOB made and maintained eye contact. MOB was observed to provide loving and appropriate hands on care to . MOB reports to feeling a connection and ford with baby. Literature and resources provided to MOB: shaken baby prevention, Help Me Grow, safe sleep, [facility] resource list and mental health information. PLAN:? MOB and baby to be discharged when medically ready. ?No other services requested or indicated. Baljit Eckert, ROLL DOUGH DIVIDER, DIET ASSISTANT
[2023-06-09 14:07] VITALS: BP 109/69; PULSE 89; RESP 16; TEMP 36.3
== END 2023-06-09 14:46 | disposition home or self-care (01) | DRG 807 ==
PROVIDERS: Obstetrics & Gynecology; Admitting Provider Registered Nurse; PCP Family Medicine; Visit Provider Registered Nurse
DX: O24.425 Gestational diabetes mellitus in childbirth, controlled by oral hypoglycemic drugs (principal); Z37.0 Single live birth; O26.893 Other specified pregnancy related conditions, third trimester; O70.1 Second degree perineal laceration during delivery; Z67.11 Type A blood, Rh negative; Z15.89 Genetic susceptibility to other disease; Z3A.39 39 weeks gestation of pregnancy; Z79.899 Other long term (current) drug therapy
CPT/HCPCS: 59025; 59050; 82962; 85025; 86780; 86850; 86900; 86901; 99221; J7120; G0378; J2405